=== PATIENT | female | born 1970 | race Caucasian/White ===

== ENCOUNTER 2020-08-18 16:25 | Emergency (ER) | payer BC, SELFPAY ==
[2020-08-18 16:35] VITALS: BP 139/90; PULSE 119; RESP 20; TEMP 37.3; O2SAT 99
[2020-08-18 16:36] VITALS: BP 139/90; PULSE 119; RESP 20; TEMP 37.3; O2SAT 99
--- NOTE | 2020-08-18 17:31 | ED.GENADULT ---
HPI - General Adult General Chief complaint: Skin/Abscess/Foreign Body Stated complaint: Itching Time Seen by Provider: 08/18/20 17:31 Source: patient and RN notes reviewed Mode of arrival: ambulatory Limitations: no limitations History of Present Illness HPI narrative: 50-year-old female presents with complaints of generalized itching for the past 24 hours. Rachana reports itching with relief for short period of time. Epson salt bath, Nandini dry, and lotion some relief. Benadryl last 09:00 today without relief. Unknown cause of itching. Denies visible rash. Denies new changes in personal hygiene products or laundry detergent. No new foods or medications. No swelling, burning, bleeding, or drainage. Denies fever, chills, headaches, weakness, fatigue, myalgia, facial swelling, or tongue swelling. Denies chest pain or dyspnea. Tolerating po intake well. Remains active. The patient reports she have not been diagnosed with COVID-19. The patient reports she received 2 Pfizer vaccines, last on May 16, 2020. The patient reports she is not waiting for the results of a COVID-19 lab test. The patient reports she do not have chills, weakness, or fatigue. The patient reports she do not have a new or worsening cough or shortness of breath. Denies chest pain. The patient reports she do not have any rhinorrhea, congestion, sore throat, loss of taste or smell, nausea, vomiting, abdominal pain, and diarrhea. Tolerating po intake well. Denies recent traveling. Denies concerns for COVID-19 or exposures. At this time, patient is not suspected of having COVID-19. Some parts of this dictation were generated by voice recognition software and may contain typographical and/or grammatical inaccuracies. Related Data Home Medications Medication Instructions Recorded Confirmed albuterol sulfate [ProAir HFA] INHALATION 08/18/20 alprazolam 08/18/20 atorvastatin 08/18/20 dapagliflozin [Farxiga] mg 08/18/20 dulaglutide [Trulicity] mg SUBCUT 08/18/20 dulaglutide [Trulicity] mg SUBCUT 08/18/20 duloxetine mg PO 08/18/20 fenofibrate micronized mg 08/18/20 fluticasone propion-salmeterol INHALATION 08/18/20 [Advair Diskus] metformin mg 08/18/20 montelukast mg 08/18/20 ropinirole mg 08/18/20 terbinafine HCl mg 08/18/20 Allergies Allergy/AdvReac Type Severity Reaction Status Date / Time No Known Allergies Allergy Unverified 10/16/18 02:49 Review of Systems Review of Systems: Narrative: CONSTITUTIONAL: Denies fever, chills, sweats. EYES: Denies visual changes, redness, discharge. ENT: Denies rhinorrhea, congestion, sore throat, otalgia. CARDIOVASCULAR: Denies chest pain, palpitations, edema. RESPIRATORY: Denies dyspnea, wheezing, cough. GASTROINTESTINAL: Denies abdominal pain, nausea, vomiting, diarrhea. SKIN: Complaints of generalized itching without rash. Denies drainage. MUSCULOSKELETAL: Denies acute back pain, joint pain, or myalgia. NEUROLOGIC: Denies numbness or focal weakness. PSYCHIATRIC: Denies anxiety or depression. All other systems reviewed & are unremarkable except as noted in HPI and below. [facility] Past Medical History Medical History (Updated 08/19/20 @ 00:00 by Chin Potter) Asthma Seasonal Diabetes Type II Hypertension Surgical History Surgical History (Updated 08/18/20 @ 17:47 by ARASH Bahena) No significant past surgical history Family History Family History Father Hypertension Family history of diabetes mellitus in first degree relative Mother Hypertension Grandparent Family history of coronary artery disease Diabetes mellitus Social History Social History (Updated 08/18/20 @ 17:48 by ARASH Bahena) Smoking packs per day: 0.5 Smoking cigarettes per day: 10.0 Years smoked: 20 Smoking pack-years: 10.00 Smoking status: Current every day smoker Tobacco type: cigarettes Se
== END 2020-08-18 17:58 | disposition home or self-care (01) ==
PROVIDERS: Emergency Provider Nurse Practitioner Family; PCP Physician Assistant
DX: L29.9 Pruritus, unspecified (principal); F17.210 Nicotine dependence, cigarettes, uncomplicated; J45.909 Unspecified asthma, uncomplicated; E11.9 Type 2 diabetes mellitus without complications; I10 Essential (primary) hypertension
CPT/HCPCS: 99213; G0463

== ENCOUNTER 2024-09-04 01:32 | Day surgery (SDC) | payer OTHER, SELFPAY ==
[2024-08-28 16:17] VITALS: BMI 25.7
--- OUTSIDE RECORDS SUMMARY | 2024-09-04 01:35 | XMS_ITS | Clinical Summary ---
Author Organization [employer] [facility] Address [address] [facility] [place] [address] Phone Care Team Providers Care Lottery Manager Name Role Phone Luca Seth MD Primary Care Provider [phone] Allergies No known active allergies Medications ALBUTEROL IN Take 2 Puffs by inhalation daily . Active CETIRIZINE HCL (ZYRTEC PO) Take 10 mg by mouth daily . Active rOPINIRole (REQUIP) 2 mg Oral Tab Take 2 mg by mouth. Active metFORMIN (GLUCOPHAGE) 1,000 mg tablet 5 Active ALPRAZolam (XANAX) 1 mg tablet 5 Active DULoxetine (CYMBALTA) 60 mg Capsule, Delayed Release(E.C.) Take 60 mg by mouth daily. Active QUEtiapine (SEROQUEL) 100 mg tablet Take 100 mg by mouth 2 times daily. Active tirzepatide (Mounjaro) 12.5 mg/0.5 mL Pen Injector Inject by subcutaneous injection. Active cyanocobalamin (VITAMIN B-12) 1,000 mcg/mL Solution 4 Active Active Problems Problem Noted Date Diagnosed Date Morbid obesity with BMI of 40.0-44.9, adult 0 04/2014 Encounters Date Type Department Care Team Description 08/21/2024 External Device Data ST[facility] ABSTRACTION Provider, Abstract 08/19/2024 External Device Data [facility] ABSTRACTION Provider, Abstract 08/05/2024 External Device Data [facility] ABSTRACTION Provider, Abstract 06/18/2024 External Device Data [facility] ABSTRACTION Provider, Abstract 06/10/2024 External Device Data [facility] ABSTRACTION Provider, Abstract 06/10/2024 External Device Data [facility] ABSTRACTION Provider, Abstract 06/07/2024 External Device Data [facility] ABSTRACTION Provider, Abstract 06/06/2024 External Device Data [facility] ABSTRACTION Provider, Abstract from Last 3 Months Family History Medical History Relation Name Comments Diabetes Father Healthy Father Hypertension Father No Known Problems Maternal Grandmother Healthy Mother Diabetes Paternal Grandmother Stroke Paternal Grandmother Relation Name Status Comments Brother Alive Father Maternal Grandfather Alive Maternal Grandmother Mother Alive Paternal Grandmother Social History Tobacco Use Types Packs/Day Years Used Date Smoking Tobacco: Former Cigarettes Smokeless Tobacco: Never Tobacco Cessation:Counseling Given: Not Answered Comments:still smokes once a month Alcohol Use Standard Drinks/Week Comments Yes 10 (1 standard drink = 0.6 oz pu re alcohol) Comments No Sex and Gender Information Value Date Recorded Sex Assigned at Not on file 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 Gender Identity Not on file Sexual Orientation Not on file Occupation Industry Job Start Date Job End Date Not on file Not on file Not on file Not on file Last Filed Vital Signs Vital Sign Reading Time Taken Comments Blood Pressure 112/70 12/25/2023 9:33 AM CDT Pulse 84 12/25/2023 9:33 AM CDT Temperature 37.3 C (99.1 F) 11/15/2012 3:08 PM CDT Respiratory Rate 20 11/15/2012 3:08 PM CDT Oxygen Saturation 97% 12/25/2023 9:33 AM CDT Inhaled Oxygen Concentration - - Weight 73.8 kg (162 lb 9.6 oz) 12/25/2023 9:33 A M CDT Height 161.5 cm (5' 3.58) 12/25/2023 9:33 AM CD T Body Mass Index 28.28 12/25/2023 9:33 AM CDT Plan of Treatment Health Maintenance Due Date Last Done Comments Pre-Diabetes and Diabetes Screening 1970 DTAP/TDAP/TD VACCINES (1 - Tdap) 1989 HEPATITIS B VACCINES (1 of 3 - 19+ 3-dose series) 01/01 BREAST CANCER SCREENING 05/10/2013 05/10/2012 COLORECTAL SCREENING 2015 Colorectal Cancer Screening 2015 FIT-DNA Q 3 years 2015 FIT/FOBT Q 1 year 2015 Flex Sig/CT Colonography Q 5 years 2015 ZOSTER VACCINE (1 of 2) 01/27/2020 INFLUENZA VACCINE (#1) 2023 PAP SMEAR 12/03/2026 12/04/2023 CERVICAL CANCER SCREENING 12/03/2028 HPV/Cotest (21-29) 12/03/2028 12/04/2023 HPV/Cotest (30-65) 12/03/2028 12/04/2023 Procedures Procedure Name Priority Date/Time Associated Diagnosis Comments CERV/VAG CYTO SCREEN PAP W/HPV Routine 12/04/2023 3:05 PM CDT Well woman exam with routine gynecological exam Screening for HPV (human papillomavirus) from Last 3 Months or Most Recently Relevant to Health Maintenance Results * CERV/VAG CYTO SCREEN PAP W/HPV (12/04/2023 3:05 PM CDT) CLINICAL INFORMATION [facility] Comment:None given LAST MENSTRUAL PERIOD [facility] Comment:None given PREV PAP: [facility] Comment:None given PREV BX: [facility] Comment:None given SOURCE [facility] Comment:Endocervix ADEQUACY: [facility] Comment:SATISFACTORY FOR HANY LUATION PAP INTERP [facility] Comment: Cytology Results: Negative for intraepithelial lesion or malignancy. Atrophic pattern; predominantly parabasal cells COMMENT (PAP TEST) [facility] Comment: This Pap test has been evaluated with computer assisted technology. FIRE ADJUSTER: Evonne Stover Comment: TMK, CT(ASCP) CT screening location: [place] [address] [place] [address] EXPLANATORY NOTE [employer] [facility] Comment: EXPLANATORY NOTE: The Pap is a screening test for cervical cancer. It is not a diagnostic test and is subject to false negative and false positive results. It is most reliable when a satisfactory sample, regularly obtained, is submitted with relevant clinical findings and history, and when the Pap result is evaluated along with historic and current clinical information. HPV E6/E7 Not Detected Not Detected [facility] Comment: Methodology: Tractor Technician-Mediated Amplification This assay detects E6/E7 viral messenger RNA (mRNA) from 14 high-risk HPV types (16,18,31,33,35,39,45,51,52,56,58,59,66,68). Cervical sources are required for HPV testing. If a vaginal source from a patient who has had a total hysterectomy with removal of cervix was submitted, please contact the testing laboratory for alternative testing options. For additional information, please refer to http://education.[facility]/faq/ONY965z4 (This link if provided for information/ educational purposes only.) Test Performed at: [facility] [address] [place] [address] Luke AMADO Genital SWAB OF ENDOCERVIX / Unknown 12/04/2023 3:05 PM CDT 12/05/2023 1:02 AM CDT Myriam Cedeno NP PATHOLOGY/CYTOLOGY ORDERABL ES Final Result [facility] [phone] [facility] [address] [place] [address] from Last 3 Months or Most Recently Relevant to Health Maintenance Insurance [facility] BLUE PREFERRED Care Teams Lottery Manager Relationship Specialty Start Date End Date Luca Seth MD PCP - General Internal Medicine 11/15/12
--- OUTSIDE RECORDS SUMMARY | 2024-09-04 01:35 | XMS_ITS | Encounter Summary ---
Author Organization [facility] Address [address] [place] [address] Care Team Providers Care Wastewater Operator Name Role Phone Unavailable Primary Care Provider Unavailabl e Encounter Details Date Type Department Care Team (Late st Contact Info) Description 10/21/2019 Lab Requisition [facility] [address] [place] [address] Sam Smith MD [address] [address] Social History Tobacco Use Types Packs/Day Years Used Date Smoking Tobacco: Never Assessed Comments Unknown Sex and Gender Information Value Date Recorded Sex Assigned at Not on file Legal Sex Female 8:33 PM CDT Gender Identity Not on file Sexual Orientation Not on file documented as of this encounter Plan of Treatment Not on file documented as of this encounter Procedures Procedure Name Priority Date/Time Associated Diagnosis Comments SARS-COV-2 (COVID-19) IN HOUSE Routine 10/21/2019 1:00 PM CDT documented in this encounter Results * SARS-COV-2 (COVID-19) IN HOUSE (10/21/2019 1:00 PM CDT) COVID-19 PCR Not detected Not detected, Invalid 10/22/2019 3:52 PM CDT [facility]CRO[facility]OLOG[facility] Microbiology SPECIMEN FROM NASOPHARYNGEAL STRUCTURE / Unknown Collection / Unknown 10/21/2019 1:00 PM CDT 10/22/2019 1:55 AM CDT Narrative [facility] MICROBIOLOGY - 10/22/2019 3:52 PM CDT This Real Time RT-PCR assay was developed and its performance characteristics determined by [facility]. This test has been authorized by the Food and Drug administration (FDA)under an Emergency Use Authorization (EUA). This test has been validated in accordance with the FDA's guidance document Policy for Diagnostic Testing in Laboratories Certified to perform High Complexity Testing under CLIA prior to Emergency Use Authorization for Coronavirus Disease-2019 during the Public Health Emergency issued on May 31, 2019. FDA independent review of this validation is pending. This test is only authorized for the duration of time the declaration that circumstances exist justifying the authorization of emergency use of in vitro diagnostic tests for detection of SARS-CoV-2 virus and/or diagnosis of COVID-19 infection under section 564(b)(1) of the Act, 21 U.S.C 360bbb-3 (b)(1), unless the authorization is terminated or revoked sooner. Sam Smith MD LAB - MICROBIOLOGY ORDERABLES [facility] Result [facility]CROBIOLOG[facility] [address] [place] [address], [facility] [phone] documented in this encounter Visit Diagnoses Not on filedocumented in this encounter Additional Health Concerns Infection Onset Date Last Indicated Resolved Time COVID-19 Under Investigation 10/21/2019 10/21/2019 10/22/2019 3:52 PM CDT documented as of this encounter
--- OUTSIDE RECORDS SUMMARY | 2024-09-04 01:35 | XMS_ITS | Continuity of Care Document ---
Author Organization [facility] Address [address] [place] [address] Phone Care Team Providers Care Supervisor Drying Name Role Phone No Information Unavailable Unavailable Advance Directives Directive Yes / No Effective Date File Name No Information Encounters Encounter Description Practice Location Reason(s) For Visit Diagnoses Date Provider Providers Copied on Encounter [facility], [address], [place], [place], [id number], [place] tel:[phone] No Information No Information Family History Family Member Type Diagnosis Age At Onset No Information Payers Payer name Insurance type Covered green party ID Authoriza tion(s) No Information Social History Type Description Quantity Date Captured Comments Sex Female Smoking Status No Information Chief Complaint And Reason For Visit No Information Reason For Referral Reason For Referral No Information History Of Present Illness Encounter Date Complaint History Of Prese nt Illness No Information Functional Status Date Functional Assessmen t No Information Instructions Date Instruction Additional Infor mation No Information Assessments Type Assessment Date No Information Patient Care Teams Name Effective Dates (start - stop) Status Members No Information
--- OUTSIDE RECORDS SUMMARY | 2024-09-04 01:36 | XMS_ITS | Data Portability ---
Author Organization [place] [facility] [employer], Main Office Address [address] [place] [address] Assessment Encounter Date Assessment Date Assessment LastModified by Organization Details LastModified Time 12/20/2022 12/20/2022 Mammogram still to complete. pap smear still to complete. [email or web address] Not available 12/20/2022 10:58:17 Plan of Treatment Reminders Order Date Submit Date Provider Last Modified By Organization Details Last Modified Time Details Appointments None recorded. Lab iron + TIBC + ferritin, serum 2022 023 [facility], [address], [place], [address], 3 02:06:38 magnesium, serum or plasma 2022 023 [facility], [address], [place], [address], 3 02:06:43 vitamin B12 + folate, serum or blood 2022 023 [facility], [address], [place], [address], 3 02:06:45 HbA1c (hemoglobin A1c), blood 2022 023 [facility], [address], [place], [address], 3 02:06:42 CBC w/ auto diff 2022 023 [facility], [address], [place], [address], 3 02:06:44 CMP, serum or plasma 2022 023 [facility], [address], [place], [address], 3 02:06:41 lipid panel, serum 2022 023 [facility], [address], [place], [address], 3 02:06:40 TSH, serum or plasma 2022 023 [facility], [address], [place], [address], 3 18:40:36 T4, free, serum 2022 023 [facility], [address], [place], [address], 3 18:40:37 HbA1c (hemoglobin A1c), blood 2022 023 [facility], [address], [place], [address], 3 18:40:35 lipid panel, serum 2022 023 [facility], [address], [place], [address], 3 18:40:34 SIOMARA (antinuclea r antibodies) screen, ifa, serum 2022 023 [facility], [address], [place], [address], 3 18:40:37 Referral None recorded. Procedures colonoscopy screening (PROC) 2022 023 [email or web address] Juan Albetro Guillermo MD, [address] [facility] [address], [place], [address], 4 09:54:31 Surgeries None recorded. Imaging MAMMO, screening, digital, bilateral 2022 023 [email or web address] 4 [facility] (Radiology Scheduling), [address], [place], [address], 3 12:24:35 Medication Orders Mounjaro 2.5 mg/0.5 mL subcutaneou s pen injector 2022 023 [email or web address] [id number], [address], [place], [place], [id number], 3 18:10:27 atorvastati n 10 mg tablet 2022 023 [facility], [address] [facility], [place], [address], 3 10:12:19 Patient TargetsNo targets recorded. Patient InstructionsNo instructions recorded. Reason for Referral None Reported. Results Created Date Observation Date Name Description Value Unit Range Abnormal Flag Note LastModifiedBy Organization Detail LastModifiedTime 08/20/19 22 08/20/2021 EXTRA URINE SPECI MEN extra urine specimen Not Available [facility] [address] [place], [address], 08/20/2021 13:48:12 08/20/19 22 08/20/2021 EXTRA URINE SPECI MEN comment An extra tube was recei horacio witho ut a test speci fied. We will hold this speci men in our cold stora ge in the event addit ional testi ng is reque sted. Pleas e conta ct your local clien t servi ce repre senta tive for fur er denia tance withi n 72 hours due to speci men stabi lity. Not Available [address], [address], 08/20/2021 13:48:12 08/20/19 22 08/20/2021 REFLE XIVE URINE CULTU RE reflexive urine culture NO CULTU RE INDIC ATED Not Available [address], [address], 08/20/2021 13:48:11 08/20/19 22 08/20/2021 URINA LYSIS , COMPL ETE W/REF MATTHEW TO CULTU RE color yellow yellow normal Not Available [address], [address], 08/20/2021 13:48:11 08/20/19 22 08/20/2021 URINA LYSIS , COMPL ETE W/REF MATTHEW TO CULTU RE appearance cloudy clear abnormal Not Available [address], [address], 08/20/2021 13:48:11 08/20/19 22 08/20/2021 URINA LYSIS , COMPL ETE W/REF MATTHEW TO CULTU RE specific gravity 1.023 1.001- 1.035 normal Not Available [address], [address], 08/20/2021 13:48:11 08/20/19 22 08/20/2021 URINA LYSIS , COMPL ETE W/REF MATTHEW TO CULTU RE pH < or = 5.0 5.0-8. 0 normal Not Available [address], [address], 08/20/2021 13:48:11 08/20/19 22 08/20/2021 URINA LYSIS , COMPL ETE W/REF MATTHEW TO CULTU RE glucose 3+ negati ve abnormal Not Available [address], [address], 08/20/2021 13:48:11 08/20/19 22 08/20/2021 URINA LYSIS , COMPL ETE W/REF MATTHEW TO CULTU RE bilirubin negati ve negati ve normal Not Available [address], [address], 08/20/2021 13:48:11 08/20/19 22 08/20/2021 URINA LYSIS , COMPL ETE W/REF MATTHEW TO CULTU RE ketones negati ve negati ve normal Not Available [address], [address], 08/20/2021 13:48:11 08/20/19 22 08/20/2021 URINA LYSIS , COMPL ETE W/REF MATTHEW TO CULTU RE occult blood negati ve negati ve normal Not Available [address], [address], 08/20/2021 13:48:11 08/20/19 22 08/20/2021 URINA LYSIS , COMPL ETE W/REF MATTHEW TO CULTU RE protein negati ve negati ve normal Not Available [address], [address], 08/20/2021 13:48:11 08/20/19 22 08/20/2021 URINA LYSIS , COMPL ETE W/REF MATTHEW TO CULTU RE nitrite negati ve negati ve normal Not Available [facility] [address], [address], 08/20/2021 13:48:11 08/20/19 22 08/20/2021 URINA LYSIS , COMPL ETE W/REF MATTHEW TO CULTU RE leukocyte esterase negati ve negati ve normal Not Available [address], [address], 08/20/2021 13:48:11 08/20/19 22 08/20/2021 URINA LYSIS , COMPL ETE W/REF MATTHEW TO CULTU RE WBC 0-5 /hpf < or = 5 normal Not Available [address], [address], 08/20/2021 13:48:11 08/20/19 22 08/20/2021 URINA LYSIS , COMPL ETE W/REF MATTHEW TO CULTU RE RBC none seen /hpf < or = 2 normal Not Available [address], [address], 08/20/2021 13:48:11 08/20/19 22 08/20/2021 URINA LYSIS , COMPL ETE W/REF MATTHEW TO CULTU RE squamous epithelial cells 6-10 /hpf < or = 5 abnormal Not Available [address], [address], 08/20/2021 13:48:11 08/20/19 22 08/20/2021 URINA LYSIS , COMPL ETE W/REF MATTHEW TO CULTU RE bacteria few /hpf none seen abnormal Not Available [address], [address], 08/20/2021 13:48:11 08/20/19 22 08/20/2021 URINA LYSIS , COMPL ETE W/REF MATTHEW TO CULTU RE hyaline cast none seen /lpf none seen normal Not Available [address], [address], 08/20/2021 13:48:11 08/20/19 22 08/20/2021 CBC (INCL UDES DIFF/ PLT) white blood cell count 8.2 thous and/u L 3.8-10 .8 normal Not Available [address], [address], 08/20/2021 13:48:10 08/20/19 22 08/20/2021 CBC (INCL UDES DIFF/ PLT) red blood cell count 4.75 lolis on/uL 3.80-5 .10 normal Not Available [address], [address], 08/20/2021 13:48:10 08/20/19 22 08/20/2021 CBC (INCL UDES DIFF/ PLT) hemoglobin 13.6 g/dL 11.7-1 5.5 normal Not Available [address], [address], 08/20/2021 13:48:10 08/20/19 22 08/20/2021 CBC (INCL UDES DIFF/ PLT) hematocrit 41.7 % 35.0-4 5.0 normal Not Available [address], [address], 08/20/2021 13:48:10 08/20/19 22 08/20/2021 CBC (INCL UDES DIFF/ PLT) MCV 87.8 fL 80.0-1 00.0 normal Not Available [address], [address], 08/20/2021 13:48:10 08/20/19 22 08/20/2021 CBC (INCL UDES DIFF/ PLT) MCH 28.6 pg 27.0-3 3.0 normal Not Available [address], [address], 08/20/2021 13:48:10 08/20/19 22 08/20/2021 CBC (INCL UDES DIFF/ PLT) MCHC 32.6 g/dL 32.0-3 6.0 normal Not Available [address], [address], 08/20/2021 13:48:10 08/20/19 22 08/20/2021 CBC (INCL UDES DIFF/ PLT) RDW 13.3 % 11.0-1 5.0 normal Not Available [address], [address], 08/20/2021 13:48:10 08/20/19 22 08/20/2021 CBC (INCL UDES DIFF/ PLT) platelet count 354 thous and/u L 140-40 0 normal Not Available [address], [address], 08/20/2021 13:48:10 08/20/19 22 08/20/2021 CBC (INCL UDES DIFF/ PLT) MPV 10.6 fL 7.5-12 .5 normal Not Available [address], [address], 08/20/2021 13:48:10 08/20/19 22 08/20/2021 CBC (INCL UDES DIFF/ PLT) absolute neutrophils 5125 cells /uL 1500-7 800 normal Not Available [address], [address], 08/20/2021 13:48:10 08/20/19 22 08/20/2021 CBC (INCL UDES DIFF/ PLT) absolute lymphocytes 2444 cells /uL 850-39 00 normal Not Available [address], [address], 08/20/2021 13:48:10 08/20/19 22 08/20/2021 CBC (INCL UDES DIFF/ PLT) absolute monocytes 361 cells /uL 200-95 0 normal Not Available [address], [address], 08/20/2021 13:48:10 08/20/19 22 08/20/2021 CBC (INCL UDES DIFF/ PLT) absolute eosinophils 189 cells /uL 15-500 normal Not Available [address], [address], 08/20/2021 13:48:10 08/20/19 22 08/20/2021 CBC (INCL UDES DIFF/ PLT) absolute basophils 82 cells /uL 0-200 normal Not Available [address] [place], [address], 08/20/2021 13:48:10 08/20/19 22 08/20/2021 CBC (INCL UDES DIFF/ PLT) neutrophils 62.5 % normal Not Available [facility] [address], [address], 08/20/2021 13:48:10 08/20/19 22 08/20/2021 CBC (INCL UDES DIFF/ PLT) lymphocytes 29.8 % normal Not Available [facility] [address], [address], 08/20/2021 13:48:10 08/20/19 22 08/20/2021 CBC (INCL UDES DIFF/ PLT) monocytes 4.4 % normal Not Available [facility] [address], [address], 08/20/2021 13:48:10 08/20/19 22 08/20/2021 CBC (INCL UDES DIFF/ PLT) eosinophils 2.3 % normal Not Available [facility] [address], [address], 08/20/2021 13:48:10 08/20/19 22 08/20/2021 CBC (INCL UDES DIFF/ PLT) basophils 1.0 % normal Not Available [facility] [address], [address], 08/20/2021 13:48:10 08/20/19 22 08/20/2021 HEMOG LOBIN A1C hemoglobin A1C 8.1 %_of_ total _HGB <5.7 high For someo ne witho ut known diabe martín, a hemog lobin A1c value of 6.5% or great er indic ates that they may have diabe martín and this shoul d be confi rmed with a follo w-up test. For someo ne with known diabe martín, a value <7% indic ates that their diabe martín is well contr olled and a value great er than or equal to 7% indic ates subop timal contr ol. A1c targe ts shoul d be indiv idual ized based on durat ion of diabe martín, age, comor bid condi tions , and other consi derat ions. Curre ntly, no conse nsus exist s ellie bowen use of hemog lobin A1c for diagn osis of diabe martín for child efren. Not Available [facility] [address] [address] [place], [address], 08/20/2021 13:48:10 08/20/19 22 08/20/2021 COMPR EHENS SURINDER METAB OLIC PANEL glucose 132 mg/dL 65-99 high Fasti ng refer ence inter dave For someo ne witho ut known diabe martín, a gluco se value >125 mg/dL indic ates that they may have diabe martín and this shoul d be confi rmed with a follo w-up test. Not Available [facility] [address] [address] [place], [address], 08/20/2021 13:48:09 08/20/19 22 08/20/2021 COMPR EHENS SURINDER METAB OLIC PANEL urea nitrogen (BUN) 19 mg/dL 7-25 normal Not Available [facility] [address] [address] [place], [address], 08/20/2021 13:48:09 08/20/19 22 08/20/2021 COMPR EHENS SURINDER METAB OLIC PANEL creatinine 0.66 mg/dL 0.50-1 .05 normal For patie nts >49 years of age, the refer ence limit for Creat inine is appro ximat keegan 13% highe r for peopl e ident ified as Afric an-Am jasbir n. Not Available [facility] [address] [place], [address], 08/20/2021 13:48:09 08/20/19 22 08/20/2021 COMPR EHENS SURINDER METAB OLIC PANEL eGFR non-afr. welsh 102 mL/mi n/1.7 3m2 > or = 60 normal Not Available [address] [place], [address], 08/20/2021 13:48:09 08/20/19 22 08/20/2021 COMPR EHENS SURINDER METAB OLIC PANEL eGFR 119 mL/mi n/1.7 3m2 > or = 60 normal Not Available [address], [address], 08/20/2021 13:48:09 08/20/19 22 08/20/2021 COMPR EHENS SURINDER METAB OLIC PANEL BUN/creatini ne ratio not applic able (calc ) 6-22 Not Available [address], [address], 08/20/2021 13:48:09 08/20/19 22 08/20/2021 COMPR EHENS SURINDER METAB OLIC PANEL sodium 138 mmol/ L 135-14 6 normal Not Available [address], [address], 08/20/2021 13:48:09 08/20/19 22 08/20/2021 COMPR EHENS SURINDER METAB OLIC PANEL potassium 4.5 mmol/ L 3.5-5. 3 normal Not Available [address], [address], 08/20/2021 13:48:09 08/20/19 22 08/20/2021 COMPR EHENS SURINDER METAB OLIC PANEL chloride 103 mmol/ L 98-110 normal Not Available [address], [address], 08/20/2021 13:48:09 08/20/19 22 08/20/2021 COMPR EHENS SURINDER METAB OLIC PANEL carbon dioxide 25 mmol/ L 20-32 normal Not Available [address] [address] [place], [address], 08/20/2021 13:48:09 08/20/19 22 08/20/2021 COMPR EHENS SURINDER METAB OLIC PANEL calcium 9.3 mg/dL 8.6-10 .4 normal Not Available [address], [address], 08/20/2021 13:48:09 08/20/19 22 08/20/2021 COMPR EHENS SURINDER METAB OLIC PANEL protein, total 7.1 g/dL 6.1-8. 1 normal Not Available [address], [address], 08/20/2021 13:48:09 08/20/19 22 08/20/2021 COMPR EHENS SURINDER METAB OLIC PANEL albumin 4.8 g/dL 3.6-5. 1 normal Not Available [address], [address], 08/20/2021 13:48:09 08/20/19 22 08/20/2021 COMPR EHENS SURINDER METAB OLIC PANEL globulin 2.3 g/dL_ (calc ) 1.9-3. 7 normal Not Available [address], [address], 08/20/2021 13:48:09 08/20/19 22 08/20/2021 COMPR EHENS SURINDER METAB OLIC PANEL albumin/glob ulin ratio 2.1 (calc ) 1.0-2. 5 normal Not Available [address], [address], 08/20/2021 13:48:09 08/20/19 22 08/20/2021 COMPR EHENS SURINDER METAB OLIC PANEL bilirubin, total 0.3 mg/dL 0.2-1. 2 normal Not Available [address], [address], 08/20/2021 13:48:09 08/20/19 22 08/20/2021 COMPR EHENS SURINDER METAB OLIC PANEL alkaline phosphatase 41 U/L 37-153 normal Not Available [facility] [address], [address], 08/20/2021 13:48:09 08/20/19 22 08/20/2021 COMPR EHENS SURINDER METAB OLIC PANEL AST 12 U/L 10-35 normal Not Available [address], [address], 08/20/2021 13:48:09 08/20/19 22 08/20/2021 COMPR EHENS SURINDER METAB OLIC PANEL ALT 16 U/L 6-29 normal Not Available [address], [address], 08/20/2021 13:48:09 08/20/19 22 08/20/2021 LIPID PANEL WITH RATIO S cholesterol, total 242 mg/dL <200 high Not Available [address], [address], 08/20/2021 13:48:09 08/20/19 22 08/20/2021 LIPID PANEL WITH RATIO S HDL cholesterol 41 mg/dL > or = 50 low Not Available [address], [address], 08/20/2021 13:48:09 08/20/19 22 08/20/2021 LIPID PANEL WITH RATIO S triglyceride s 285 mg/dL <150 high If a non-f astin g speci men was colle cted, consi angel luis repea t trigl yceri de testi ng on a fasti ng speci men if clini alize indic ated. Marvel petit et al. J. of Clin. Lipid ol. 2015; 9:129 -169. Not Available [address], [address], 08/20/2021 13:48:09 08/20/19 22 08/20/2021 LIPID PANEL WITH RATIO S LDL-choleste rol 154 mg/dL _(yolanda c) high Refer ence range : <100 Gabriel able range <100 mg/dL for prima ry preve ntion ; <70 mg/dL for patie nts with CHD or diabe tic patie nts with > or = 2 CHD risk facto rs. LDL-C is now calcu lated using the Yarelis n-Hop kins calcu ja n, which is a valid ated novel lauritao d constantino bowen loida r accur acy than the Fried terrence equat ion in the estim ation of LDL-C . Yarelis jimenes SS et al. DANNI. 2013; 310(1 9): 2061- 2068 (http ://ed ucati on.Qu qianchengwuyou. Kaybus/f aq/FA Q164) Not Available [facility] [address] [address] [place], [address], 08/20/2021 13:48:09 08/20/19 22 08/20/2021 LIPID PANEL WITH RATIO S chol/HDLC ratio 5.9 (calc ) <5.0 high Not Available [facility] [address] [address] [place], [address], 08/20/2021 13:48:09 08/20/19 22 08/20/2021 LIPID PANEL WITH RATIO S LDL/HDL ratio 3.8 (calc ) Below avera ge Risk: <2.34 Ghent ge Risk: 2.35- 4.12 Moder ate Risk: 4.13- 5.56 High Risk: >5.57 Not Available [facility] [address] [place], [address], 08/20/2021 13:48:09 08/20/19 22 08/20/2021 LIPID PANEL WITH RATIO S non HDL cholesterol 201 mg/dL _(yolanda c) <130 high For patie nts with diabe martín plus 1 major ASCVD risk facto r, treat ing to a non-H DL-C goal of <100 mg/dL (LDL- C of <70 mg/dL ) is consi jose elias a alyce penikko c optio n. Not Available [address] [address] [place], [address], 08/20/2021 13:48:09 08/20/19 22 08/20/2021 TSH+F REE T4 TSH 1.08 mIU/L normal Refer ence Range > or = 20 Years 0.40- 4.50 Pregn keeley Range s First trime ster 0.26- 2.66 Secon d trime ster 0.55- 2.73 Third trime ster 0.43- 2.91 Not Available [address] [address] [place], [address], 08/20/2021 13:48:08 08/20/19 22 08/20/2021 TSH+F REE T4 T4, free 1.2 NG/dL 0.8-1. 8 normal Not Available [address], [address], 08/20/2021 13:48:08 08/20/19 22 08/20/2021 ALBUM IN, RANDO M URINE W/CRE ATINI NE albumin, urine <0.2 mg/dL see note: normal Refer ence Range : Refer ence Range Not estab lishe d Not Available [address], [address], 08/20/2021 13:48:07 08/20/19 22 08/20/2021 ALBUM IN, RANDO M URINE W/CRE ATINI NE albumin/crea tinine ratio, random urine note mcg/m g_cre at <30 normal NOTE: The urine album in value is less than 0.2 mg/dL there fore we are unabl e to calcu late excre tion and/o r creat inine ratio . The ADA defin es abnor malit ies in album in excre tion as follo ws: Album inuri a Categ ory Resul t (mcg/ mg creat inine ) Shameka l to Mildl y incre ased <30 Moder ately incre ased 30-29 9 Sever keegan incre ased > OR = 300 The ADA recom mends that at least two of three speci mens colle cted withi n a 3-6 month perio d be abnor mal befor e consi mag g a patie nt to be withi n a diagn ostic categ ory. Not Available [address] [address] [place], [address], 08/20/2021 13:48:07 08/20/19 22 08/20/2021 ALBUM IN, RANDO M URINE W/CRE ATINI NE creatinine, random urine 32 mg/dL 20-275 normal Not Available [address] [address] [place], [address], 08/20/2021 13:48:07 08/10/19 23 08/10/2022 LIPID PANEL WITH RATIO S cholesterol, total 197 mg/dL <200 normal Not Available [address] [address] [place], [address], 08/10/2022 01:07:56 08/10/19 23 08/10/2022 LIPID PANEL WITH RATIO S HDL cholesterol 41 mg/dL > or = 50 low Not Available [address] [address] [place], [address], 08/10/2022 01:07:56 08/10/19 23 08/10/2022 LIPID PANEL WITH RATIO S triglyceride s 177 mg/dL <150 high Not Available [address], [address], 08/10/2022 01:07:56 08/10/19 23 08/10/2022 LIPID PANEL WITH RATIO S LDL-choleste rol 127 mg/dL _(yolanda c) high Refer ence range : <100 Gabriel able range <100 mg/dL for prima ry preve ntion ; <70 mg/dL for patie nts with CHD or diabe tic patie nts with > or = 2 CHD risk facto rs. LDL-C is now calcu lated using the Yarelis n-Hop kins zeus jimenes, which is a valid ated novel metho winston bowen loida r accur acy than the Fried terrence equat ion in the estim ation of LDL-C . Yarelis n SS et al. DANNI. 2013; 310(1 9): 2061- 2068 (http ://ed ucati on.Qu Martin altagracia Ullink. com/f aq/FA Q164) Not Available [facility] [address] [address] [place], [address], 08/10/2022 01:07:56 08/10/19 23 08/10/2022 LIPID PANEL WITH RATIO S chol/HDLC ratio 4.8 (calc ) <5.0 normal Not Available [address], [address], 08/10/2022 01:07:56 08/10/1908/10/2022 LIPID PANEL WITH RATIO S LDL/HDL ratio 3.1 (calc ) Below avera ge Risk: <2.34 [place] Risk: 2.35- 4.12 Moder ate Risk: 4.13- 5.56 High Risk: >5.57 Not Available [address], [address], 08/10/2022 01:07:56 08/10/1908/10/2022 LIPID PANEL WITH RATIO S non HDL cholesterol 156 mg/dL _(yolanda c) <130 high For patie nts with diabe martín plus 1 major ASCVD risk facto r, treat ing to a non-H DL-C goal of <100 mg/dL (LDL- C of <70 mg/dL ) is consi dered a thera peuti c optio n. Not Available [facility] [address] [address] [place], [address], 08/10/2022 01:07:56 08/10/1908/10/2022 COMPR EHENS SURINDER METAB OLIC PANEL glucose 174 mg/dL 65-99 high Fasti ng refer ence inter dave For someo ne witho ut known diabe martín, a gluco se value >125 mg/dL indic ates that they may have diabe martín and this shoul d be confi rmed with a follo w-up test. Not Available [address], [address], 08/10/2022 01:07:57 08/10/19 23 08/10/2022 COMPR EHENS SURINDER METAB OLIC PANEL urea nitrogen (BUN) 15 mg/dL 7-25 normal Not Available [address], [address], 08/10/2022 01:07:57 08/10/1908/10/2022 COMPR EHENS SURINDER METAB OLIC PANEL creatinine 0.72 mg/dL 0.50-1 .03 normal Not Available [address], [address], 08/10/2022 01:07:57 08/10/19 23 08/10/2022 COMPR EHENS SURINDER METAB OLIC PANEL eGFR 101 mL/mi n/1.7 3m2 > or = 60 normal The eGFR is based on the CKD-E PI 2020 millie shea. To calcu late the new eGFR from a previ ous Creat inine or Cysta tin C resul t, go to https ://cristina britton.amaury hector/katelynn alexandre s/ kdoqi /gfr% 5Fcal culat or Not Available [address], [address], 08/10/2022 01:07:57 08/10/19 23 08/10/2022 COMPR EHENS SURINDER METAB OLIC PANEL BUN/creatini ne ratio NOT APPLIC ABLE (calc ) 6-22 Not Available [address], [address], 08/10/2022 01:07:57 08/10/19 23 08/10/2022 COMPR EHENS SURINDER METAB OLIC PANEL sodium 136 mmol/ L 135-14 6 normal Not Available [facility] [address] [place], [address], 08/10/2022 01:07:57 08/10/1908/10/2022 COMPR EHENS SURINDER METAB OLIC PANEL potassium 4.2 mmol/ L 3.5-5. 3 normal Not Available [address], [address], 08/10/2022 01:07:57 08/10/1908/10/2022 COMPR EHENS SURINDER METAB OLIC PANEL chloride 106 mmol/ L 98-110 normal Not Available [address], [address], 08/10/2022 01:07:57 08/10/1908/10/2022 COMPR EHENS SURINDER METAB OLIC PANEL carbon dioxide 25 mmol/ L 20-32 normal Not Available [address], [address], 08/10/2022 01:07:57 08/10/19 23 08/10/2022 COMPR EHENS SURINDER METAB OLIC PANEL calcium 9.1 mg/dL 8.6-10 .4 normal Not Available [address], [address], 08/10/2022 01:07:57 08/10/1908/10/2022 COMPR EHENS SURINDER METAB OLIC PANEL protein, total 6.4 g/dL 6.1-8. 1 normal Not Available [address], [address], 08/10/2022 01:07:57 08/10/1908/10/2022 COMPR EHENS SURINDER METAB OLIC PANEL albumin 4.1 g/dL 3.6-5. 1 normal Not Available [address], [address], 08/10/2022 01:07:57 08/10/19 23 08/10/2022 COMPR EHENS SURINDER METAB OLIC PANEL globulin 2.3 g/dL_ (calc ) 1.9-3. 7 normal Not Available [address], [address], 08/10/2022 01:07:57 08/10/19 23 08/10/2022 COMPR EHENS SURINDER METAB OLIC PANEL albumin/glob ulin ratio 1.8 (calc ) 1.0-2. 5 normal Not Available [address], [address], 08/10/2022 01:07:57 08/10/1908/10/2022 COMPR EHENS SURINDER METAB OLIC PANEL bilirubin, total 0.3 mg/dL 0.2-1. 2 normal Not Available [address], [address], 08/10/2022 01:07:57 08/10/19 23 08/10/2022 COMPR EHENS SURINDER METAB OLIC PANEL alkaline phosphatase 29 U/L 37-153 low Not Available [address], [id number], 08/10/2022 01:07:57 08/10/19 23 08/10/2022 COMPR EHENS SURINDER METAB OLIC PANEL AST 12 U/L 10-35 normal Not Available [address], [id number], 08/10/2022 01:07:57 08/10/19 23 08/10/2022 COMPR EHENS SURINDER METAB OLIC PANEL ALT 15 U/L 6-29 normal Not Available [address], [address], 08/10/2022 01:07:57 08/10/19 23 08/10/2022 HEMOG LOBIN A1C hemoglobin A1C 8.4 %_of_ total _HGB <5.7 high For someo ne witho ut known diabe martín, a hemog lobin A1c value of 6.5% or great er indic ates that they may have diabe martín and this shoul d be confi rmed with a follo w-up test. For someo ne with known diabe martín, a value <7% indic ates that their diabe martín is well contr olled and a value great er than or equal to 7% indic ates subop timal contr ol. A1c targe ts shoul d be indiv idual ized based on durat ion of diabe martín, age, comor bid condi tions , and other consi derat ions. Curre ntly, no conse nsus exist s ellie bowen use of hemog lobin A1c for diagn osis of diabe martín for child efren. Not Available [address], [address], 08/10/2022 01:07:57 08/10/19 23 08/10/2022 CBC (INCL UDES DIFF/ PLT) white blood cell count 5.8 thous and/u L 3.8-10 .8 normal Not Available [address], [address], 08/10/2022 01:07:58 08/10/19 23 08/10/2022 CBC (INCL UDES DIFF/ PLT) red blood cell count 4.26 lolis on/uL 3.80-5 .10 normal Not Available [facility] [address], [address], 08/10/2022 01:07:58 08/10/19 23 08/10/2022 CBC (INCL UDES DIFF/ PLT) hemoglobin 12.2 g/dL 11.7-1 5.5 normal Not Available [facility] [address], [address], 08/10/2022 01:07:58 08/10/19 23 08/10/2022 CBC (INCL UDES DIFF/ PLT) hematocrit 37.1 % 35.0-4 5.0 normal Not Available [facility] - [address], [address], 08/10/2022 01:07:58 08/10/1908/10/2022 CBC (INCL UDES DIFF/ PLT) MCV 87.1 fL 80.0-1 00.0 normal Not Available [facility] [address], [address], 08/10/2022 01:07:58 08/10/1908/10/2022 CBC (INCL UDES DIFF/ PLT) MCH 28.6 pg 27.0-3 3.0 normal Not Available [facility] [address], [address], 08/10/2022 01:07:58 08/10/1908/10/2022 CBC (INCL UDES DIFF/ PLT) MCHC 32.9 g/dL 32.0-3 6.0 normal Not Available [facility] [address], [address], 08/10/2022 01:07:58 08/10/1908/10/2022 CBC (INCL UDES DIFF/ PLT) RDW 13.5 % 11.0-1 5.0 normal Not Available [facility] [address], [address], 08/10/2022 01:07:58 08/10/1908/10/2022 CBC (INCL UDES DIFF/ PLT) platelet count 331 thous and/u L 140-40 0 normal Not Available [facility] [address], [address], 08/10/2022 01:07:58 08/10/1908/10/2022 CBC (INCL UDES DIFF/ PLT) MPV 10.4 fL 7.5-12 .5 normal Not Available [facility] [address], [address], 08/10/2022 01:07:58 08/10/1908/10/2022 CBC (INCL UDES DIFF/ PLT) absolute neutrophils 3097 cells /uL 1500-7 800 normal Not Available [address], [address], 08/10/2022 01:07:58 08/10/19 23 08/10/2022 CBC (INCL UDES DIFF/ PLT) absolute lymphocytes 2169 cells /uL 850-39 00 normal Not Available [address], [address], 08/10/2022 01:07:58 08/10/1908/10/2022 CBC (INCL UDES DIFF/ PLT) absolute monocytes 302 cells /uL 200-95 0 normal Not Available [address], [address], 08/10/2022 01:07:58 08/10/1908/10/2022 CBC (INCL UDES DIFF/ PLT) absolute eosinophils 162 cells /uL 15-500 normal Not Available [facility] [address], [address], 08/10/2022 01:07:58 08/10/19 23 08/10/2022 CBC (INCL UDES DIFF/ PLT) absolute basophils 70 cells /uL 0-200 normal Not Available [facility] [address], [address], 08/10/2022 01:07:58 08/10/1908/10/2022 CBC (INCL UDES DIFF/ PLT) neutrophils 53.4 % normal Not Available [facility] [address], [address], 08/10/2022 01:07:58 08/10/1908/10/2022 CBC (INCL UDES DIFF/ PLT) lymphocytes 37.4 % normal Not Available [facility] [address], [address], 08/10/2022 01:07:58 08/10/19 23 08/10/2022 CBC (INCL UDES DIFF/ PLT) monocytes 5.2 % normal Not Available [address], [address], 08/10/2022 01:07:58 08/10/19 23 08/10/2022 CBC (INCL UDES DIFF/ PLT) eosinophils 2.8 % normal Not Available [address], [address], 08/10/2022 01:07:58 08/10/19 23 08/10/2022 CBC (INCL UDES DIFF/ PLT) basophils 1.2 % normal Not Available [address], [address], 08/10/2022 01:07:58 11/23/19 23 11/23/2022 LIPID PANEL WITH RATIO S cholesterol, total 133 mg/dL <200 normal Not Available [address], [address], 11/23/2022 18:40:34 11/23/1911/23/2022 LIPID PANEL WITH RATIO S HDL cholesterol 41 mg/dL > or = 50 low Not Available [address], [address], 11/23/2022 18:40:34 11/23/19 23 11/23/2022 LIPID PANEL WITH RATIO S triglyceride s 140 mg/dL <150 normal Not Available [address], [address], 11/23/2022 18:40:34 11/23/1911/23/2022 LIPID PANEL WITH RATIO S LDL-choleste rol 70 mg/dL _(yolanda c) normal Refer ence range : <100 Gabriel able range <100 mg/dL for prima ry preve ntion ; <70 mg/dL for patie nts with CHD or diabe tic patie nts with > or = 2 CHD risk facto rs. LDL-C is now calcu lated using the Yarelis n-Hop kins calcu jigneshberlin n, which is a valid ated novel lennox roy than the Fried terrence equat ion in the estim ation of LDL-C . Yarelis jimenes SS et al. DANNI. 2013; 310(1 9): 2061- 2068 (http ://ed ucati on.Qu Martin Linkdex. com/f aq/FA Q164) Not Available [facility] [address] [address] [place], [address], 11/23/2022 18:40:34 11/23/1911/23/2022 LIPID PANEL WITH RATIO S chol/HDLC ratio 3.2 (calc ) <5.0 normal Not Available [facility] [address] [address] [place], [address], 11/23/2022 18:40:34 11/23/1911/23/2022 LIPID PANEL WITH RATIO S LDL/HDL ratio 1.7 (calc ) Below avera ge Risk: <2.34 [place]hent ge Risk: 2.35- 4.12 Moder ate Risk: 4.13- 5.56 High Risk: >5.57 Not Available [facility] [address] [address] , [place], [address], 11/23/2022 18:40:34 11/23/1911/23/2022 LIPID PANEL WITH RATIO S non HDL cholesterol 92 mg/dL _(yolanda c) <130 normal For patie nts with diabe martín plus 1 major ASCVD risk facto r, treat ing to a non-H DL-C goal of <100 mg/dL (LDL- C of <70 mg/dL ) is phuc gaston n. Not Available [facility] [address] [place], [address], 11/23/2022 18:40:34 11/23/1911/23/2022 HEMOG LOBIN A1C hemoglobin A1C 7.1 %_of_ total _HGB <5.7 high For someo ne witho ut known diabe martín, a hemog lobin A1c value of 6.5% or great er indic ates that they may have diabe martín and this shoul d be confi rmed with a follo w-up test. For someo ne with known diabe martín, a value <7% indic ates that their diabe martín is well contr olled and a value great er than or equal to 7% indic ates subop timal contr ol. A1c targe ts shoul d be indiv idual ized based on durat ion of diabe martín, age, comor bid condi tions , and other consi derat ions. Curre ntly, no conse nsus exist s ellie bowen use of hemog lobin A1c for diagn osis of diabe martín for child efren. Not Available [facility] [address], [place], [address], 11/23/2022 18:40:35 11/23/1911/23/2022 TSH TSH 1.58 mIU/L normal Refer ence Range > or = 20 Years 0.40- 4.50 Pregn keeley Range s First trime ster 0.26- 2.66 Secon d trime ster 0.55- 2.73 Third trime ster 0.43- 2.91 Not Available [facility] [address] [place], [address], 11/23/2022 18:40:36 11/23/1911/23/2022 T4, FREE T4, free 1.1 NG/dL 0.8-1. 8 normal Not Available [facility] [address], [place], [address], 11/23/2022 18:40:36 11/23/1911/23/2022 SIOMARA SCREE N, IFA, W/REF L TITER AND SONJA HERRING SIOMARA screen, ifa NEGATI VE negati ve normal SIOMARA IFA is a first line scree n for detec ting the prese nce of up to appro ximat keegan 150 autoa ntibo dies in vario us autoi mmune disea ses. A negat surinder SIOMARA IFA resul t sugge sts an SIOMARA-a ssoci ated autoi mmune disea se is not prese nt at this time, but is not defin itive . If there is high clini yolanda suspi cion for Sjogr en's syndr ome, testi ng for anti- SS-A/ Ro antib yessica shoul d be consi dered . Anti- Macrina-1 antib yessica shoul d be consi dered for clini alize suspe cted infla mmato ry myopa josué . AC-0: Negat surinder Inter natio nal Conse nsus on SIOMARA Patte rns (http s://d oi.or g/10. 1515/ [facility]2017- 0052) For addit ional infor lynnette harper e refer to http: //[facility] chris jimenes.Osei stDia gnost ics.c om/fa q/FAQ 177 (This link is being provi ded for infor tommy holland/ educa rory l purpo ses only. ) Not Available [facility] [address] [address] [place], [address], 11/23/2022 18:40:37 03/06/20 23 03/07/2023 IRON, TIBC AND NICOLÁS TIN PANEL iron, total 57 mcg/d L 45-160 normal Not Available [facility] [address] [address] [place], [address], 03/07/2023 02:06:38 03/06/20 23 03/07/2023 IRON, TIBC AND NICOLÁS TIN PANEL iron binding capacity 409 mcg/d L_(ca lc) 250-45 0 normal Not Available [facility] [address] [address] [place], [address], 03/07/2023 02:06:38 03/06/20 23 03/07/2023 IRON, TIBC AND NICOLÁS TIN PANEL % saturation 14 %_(ca lc) 16-45 low Not Available [facility] [address], [address], 03/07/2023 02:06:38 03/06/20 23 03/07/2023 IRON, TIBC AND NICOLÁS TIN PANEL ferritin 115 NG/mL 16-232 normal Not Available [address], [address], 03/07/2023 02:06:38 03/06/20 23 03/07/2023 LIPID PANEL WITH RATIO S cholesterol, total 156 mg/dL <200 normal Not Available [address], [address], 03/07/2023 02:06:40 03/06/20 23 03/07/2023 LIPID PANEL WITH RATIO S HDL cholesterol 56 mg/dL > or = 50 normal Not Available [address], [address], 03/07/2023 02:06:40 03/06/20 23 03/07/2023 LIPID PANEL WITH RATIO S triglyceride s 105 mg/dL <150 normal Not Available [address], [address], 03/07/2023 02:06:40 03/06/20 23 03/07/2023 LIPID PANEL WITH RATIO S LDL-choleste rol 80 mg/dL _(yolanda c) normal Refer ence range : <100 Gabriel able range <100 mg/dL for prima ry preve ntion ; <70 mg/dL for patie nts with CHD or diabe tic patie nts with > or = 2 CHD risk facto rs. LDL-C is now calcu lated using the Yarelis n-Hop kins adelinau ja n, which is a valid ated novel lennox roy than the Fried terrence equat ion in the estim ation of LDL-C . Yarelis jimenes SS et al. DANNI. 2013; 310(1 9): 2061- 2068 (http ://ed ucati on.Qu Martin Shoptagrs. com/f aq/FA Q164) Not Available [address], [place], [address], 03/07/2023 02:06:40 03/06/20 23 03/07/2023 LIPID PANEL WITH RATIO S chol/HDLC ratio 2.8 (calc ) <5.0 normal Not Available [facility] [address] , [place], [address], 03/07/2023 02:06:40 03/06/20 23 03/07/2023 LIPID PANEL WITH RATIO S LDL/HDL ratio 1.4 (calc ) Below avera ge Risk: <2.34 [place] Risk: 2.35- 4.12 Moder ate Risk: 4.13- 5.56 High Risk: >5.57 Not Available [facility] [address], [place], [address], 03/07/2023 02:06:40 03/06/20 23 03/07/2023 LIPID PANEL WITH RATIO S non HDL cholesterol 100 mg/dL _(yolanda c) <130 normal For patie nts with diabe martín plus 1 major ASCVD risk facto r, treat ing to a non-H DL-C goal of <100 mg/dL (LDL- C of <70 mg/dL ) is consi dered a thera peuti c optio n. Not Available [facility] [address] , [place], [address], 03/07/2023 02:06:40 03/06/20 23 03/07/2023 COMPR EHENS SURINDER METAB OLIC PANEL glucose 115 mg/dL 65-99 high Fasti ng refer ence inter dave For someo ne witho ut known diabe martín, a gluco se value betwe en 100 and 125 mg/dL is consi stent with predi abete s and shoul d be confi rmed with a follo w-up test. Not Available [facility] [address] [address] [place], [address], 03/07/2023 02:06:41 03/06/20 23 03/07/2023 COMPR EHENS SURINDER METAB OLIC PANEL urea nitrogen (BUN) 15 mg/dL 7-25 normal Not Available [address], [address], 03/07/2023 02:06:41 03/06/20 23 03/07/2023 COMPR EHENS SURINDER METAB OLIC PANEL creatinine 0.88 mg/dL 0.50-1 .03 normal Not Available [address], [address], 03/07/2023 02:06:41 03/06/20 23 03/07/2023 COMPR EHENS SURINDER METAB OLIC PANEL eGFR 79 mL/mi n/1.7 3m2 > or = 60 normal Not Available [address], [address], 03/07/2023 02:06:41 03/06/20 23 03/07/2023 COMPR EHENS SURINDER METAB OLIC PANEL BUN/creatini ne ratio SEE NOTE: (calc ) 6-22 Not Repor kwan: BUN and Creat inine are withi n refer ence range . Not Available [address], [address], 03/07/2023 02:06:41 03/06/20 23 03/07/2023 COMPR EHENS SURINDER METAB OLIC PANEL sodium 141 mmol/ L 135-14 6 normal Not Available [facility] [address], [address], 03/07/2023 02:06:41 03/06/20 23 03/07/2023 COMPR EHENS SURINDER METAB OLIC PANEL potassium 4.3 mmol/ L 3.5-5. 3 normal Not Available [facility] [address], [address], 03/07/2023 02:06:41 03/06/20 23 03/07/2023 COMPR EHENS SURINDER METAB OLIC PANEL chloride 103 mmol/ L 98-110 normal Not Available [facility] [place] [address] [address], [place], [address], 03/07/2023 02:06:41 03/06/20 23 03/07/2023 COMPR EHENS SURINDER METAB OLIC PANEL carbon dioxide 26 mmol/ L 20-32 normal Not Available [address], [address], 03/07/2023 02:06:41 03/06/20 23 03/07/2023 COMPR EHENS SURINDER METAB OLIC PANEL calcium 9.9 mg/dL 8.6-10 .4 normal Not Available [address], [address], 03/07/2023 02:06:41 03/06/20 23 03/07/2023 COMPR EHENS SURINDER METAB OLIC PANEL protein, total 7.4 g/dL 6.1-8. 1 normal Not Available [address], [address], 03/07/2023 02:06:41 03/06/20 23 03/07/2023 COMPR EHENS SURINDER METAB OLIC PANEL albumin 4.7 g/dL 3.6-5. 1 normal Not Available [address], [address], 03/07/2023 02:06:41 03/06/20 23 03/07/2023 COMPR EHENS SURINDER METAB OLIC PANEL globulin 2.7 g/dL_ (calc ) 1.9-3. 7 normal Not Available [address], [address], 03/07/2023 02:06:41 03/06/20 23 03/07/2023 COMPR EHENS SURINDER METAB OLIC PANEL albumin/glob ulin ratio 1.7 (calc ) 1.0-2. 5 normal Not Available [address], [address], 03/07/2023 02:06:41 03/06/20 23 03/07/2023 COMPR EHENS SURINDER METAB OLIC PANEL bilirubin, total 0.5 mg/dL 0.2-1. 2 normal Not Available [address] [address] [place], [address], 03/07/2023 02:06:41 03/06/20 23 03/07/2023 COMPR EHENS SURINDER METAB OLIC PANEL alkaline phosphatase 28 U/L 37-153 low Not Available [address] [address] [place], [address], 03/07/2023 02:06:41 03/06/20 23 03/07/2023 COMPR EHENS SURINDER METAB OLIC PANEL AST 14 U/L 10-35 normal Not Available [address] [address] [place], [address], 03/07/2023 02:06:41 03/06/20 23 03/07/2023 COMPR EHENS SURINDER METAB OLIC PANEL ALT 13 U/L 6-29 normal Not Available [address] [address] [place], [address], 03/07/2023 02:06:41 03/06/20 23 03/07/2023 HEMOG LOBIN A1C hemoglobin A1C 6.1 %_of_ total _HGB <5.7 high For someo ne witho ut known diabe martín, a hemog lobin A1c value betwe en 5.7% and 6.4% is consi stent with predi abete s and shoul d be confi rmed with a follo w-up test. For someo ne with known diabe martín, a value <7% indic ates that their diabe martín is well contr olled . A1c targe ts shoul d be indiv idual ized based on durat ion of diabe martín, age, comor bid condi tions , and other consi derat ions. This assay resul t is consi stent with an incre ased risk of diabe martín. Curre ntly, no conse nsus exist s ellie bowen use of hemog lobin A1c for diagn osis of diabe martín for child efren. Not Available [address], [address], 03/07/2023 02:06:42 03/06/20 23 03/07/2023 MAGNE SIUM magnesium 2.1 mg/dL 1.5-2. 5 normal Not Available [facility] [address], [address], 03/07/2023 02:06:43 03/06/2003/07/2023 CBC (INCL UDES DIFF/ PLT) white blood cell count 7.3 thous and/u L 3.8-10 .8 normal Not Available [address], [address], 03/07/2023 02:06:44 03/06/20 23 03/07/2023 CBC (INCL UDES DIFF/ PLT) red blood cell count 4.79 lolis on/uL 3.80-5 .10 normal Not Available [address], [address], 03/07/2023 02:06:44 03/06/20 23 03/07/2023 CBC (INCL UDES DIFF/ PLT) hemoglobin 13.5 g/dL 11.7-1 5.5 normal Not Available [facility] [address], [address], 03/07/2023 02:06:44 03/06/20 23 03/07/2023 CBC (INCL UDES DIFF/ PLT) hematocrit 41.6 % 35.0-4 5.0 normal Not Available [facility] [address], [address], 03/07/2023 02:06:44 03/06/20 23 03/07/2023 CBC (INCL UDES DIFF/ PLT) MCV 86.8 fL 80.0-1 00.0 normal Not Available [address], [address], 03/07/2023 02:06:44 03/06/20 23 03/07/2023 CBC (INCL UDES DIFF/ PLT) MCH 28.2 pg 27.0-3 3.0 normal Not Available [address], [address], 03/07/2023 02:06:44 03/06/20 23 03/07/2023 CBC (INCL UDES DIFF/ PLT) MCHC 32.5 g/dL 32.0-3 6.0 normal Not Available [address], [address], 03/07/2023 02:06:44 03/06/20 23 03/07/2023 CBC (INCL UDES DIFF/ PLT) RDW 13.9 % 11.0-1 5.0 normal Not Available [address], [address], 03/07/2023 02:06:44 03/06/20 23 03/07/2023 CBC (INCL UDES DIFF/ PLT) platelet count 363 thous and/u L 140-40 0 normal Not Available [address], [address], 03/07/2023 02:06:44 03/06/20 23 03/07/2023 CBC (INCL UDES DIFF/ PLT) MPV 10.3 fL 7.5-12 .5 normal Not Available [address], [address], 03/07/2023 02:06:44 03/06/20 23 03/07/2023 CBC (INCL UDES DIFF/ PLT) absolute neutrophils 4329 cells /uL 1500-7 800 normal Not Available [address], [address], 03/07/2023 02:06:44 03/06/20 23 03/07/2023 CBC (INCL UDES DIFF/ PLT) absolute lymphocytes 2234 cells /uL 850-39 00 normal Not Available [address], [address], 03/07/2023 02:06:44 03/06/20 23 03/07/2023 CBC (INCL UDES DIFF/ PLT) absolute monocytes 350 cells /uL 200-95 0 normal Not Available [address], [address], 03/07/2023 02:06:44 03/06/20 23 03/07/2023 CBC (INCL UDES DIFF/ PLT) absolute eosinophils 329 cells /uL 15-500 normal Not Available [address], [address], 03/07/2023 02:06:44 03/06/20 23 03/07/2023 CBC (INCL UDES DIFF/ PLT) absolute basophils 58 cells /uL 0-200 normal Not Available [address], [address], 03/07/2023 02:06:44 03/06/20 23 03/07/2023 CBC (INCL UDES DIFF/ PLT) neutrophils 59.3 % normal Not Available [address], [address], 03/07/2023 02:06:44 03/06/2003/07/2023 CBC (INCL UDES DIFF/ PLT) lymphocytes 30.6 % normal Not Available [facility] [address], [address], 03/07/2023 02:06:44 03/06/20 23 03/07/2023 CBC (INCL UDES DIFF/ PLT) monocytes 4.8 % normal Not Available [address], [address], 03/07/2023 02:06:44 03/06/20 23 03/07/2023 CBC (INCL UDES DIFF/ PLT) eosinophils 4.5 % normal Not Available [facility] [address], [address], 03/07/2023 02:06:44 03/06/20 23 03/07/2023 CBC (INCL UDES DIFF/ PLT) basophils 0.8 % normal Not Available [facility] [address], [address], 03/07/2023 02:06:44 03/06/20 23 03/07/2023 VITAM IN B12/F OLATE , SERUM PANEL vitamin B12 226 pg/mL 200-11 00 normal Pleas e Note: Altho ugh the refer ence range for vitam in B12 is 200-1 100 pg/mL , it has been repor kwan that betwe en 5 and 10% of patie nts with value s betwe en 200 and 400 pg/mL may exper ience neuro psych iatri c and hemat ologi c abnor malit ies due to occul t B12 defic iency ; less than 1% of patie nts with value s above 400 pg/mL will have sympt oms. Not Available [facility] [address], [address], 03/07/2023 02:06:45 03/06/20 23 03/07/2023 VITAM IN B12/F OLATE , SERUM PANEL folate, serum 6.7 NG/mL normal Refer ence Range Low: <3.4 Borde rline : 3.4-5 .4 Shameka l: >5.4 Not Available [facility] [address], [address], 03/07/2023 02:06:45 11/30/19 22 11/02/2021 MAMMO , scree adam, digit al, bilat eral No observ ation record ed. [id number] [facility] Medical Records [address], [place], [address], 05/31/2022 05:08:20 Result Notes None recorded. Problems Name Problem SNOMED Code Status Onset Date Resolution Date Notes Provider Name and Address Organization Details Recorded Time Dysfunctio n of bilateral eustachian tubes 4224998753139 100 Active 2021 Not Available [facility] 3 04:54:23 Benign essential hypertensi on 8219652 Active 2017 Not Available [facility] 3 04:54:23 Mixed hyperlipid emia 182308534 Active 2017 Not Available [facility] 3 04:54:23 Restless legs 37948965 Active 2019 Not Available [facility] 3 04:54:23 Onychomyco sis 360887187 Active 2021 Not Available [facility] 3 04:54:23 Type 2 diabetes mellitus 76177897 Active 2017 Not Available [facility] 3 04:54:23 Well controlled type 2 diabetes mellitus 476402439 Active 2021 Not Available [facility] 3 04:54:23 Anxiety 57027772 Active 2019 Not Available [facility] 3 04:54:23 Upper respirator y infection 79015860 Active 2021 Not Available [facility] 3 04:54:24 Otitis media 94520599 Active 2021 Not Available [facility] 3 04:54:24 Obstructiv e sleep apnea syndrome 48952139 Active 2019 ANA Hughes null, [employer] 3 12:06:28 COVID-19 287231047 Active 2021 Not Available [facility] 3 04:54:24 Uncontroll ed type 2 diabetes mellitus 770606920 Active 2022 JUSTIN Mcginnis [address] [place] [address], [address] [address], [place], [address] , [employer] 3 09:54:15 Hyperlipid emia 94915312 Active 2022 JUSTIN Mcginnis [address], [place], [address] , [facility] [employer] [facility] [employer] [facility] 3 09:54:18 Dry eyes 371941092 Active 2022 JUSTIN Mcginnis [address], [place], [address] , [employer] [facility] 3 10:07:47 Acute upper respirator y infection 17654302 Active 2022 JUSTIN Mcginnis [address], [place], [address] , [employer] [facility] 3 16:31:39 Notes:COVID-19 pos 12/11/21 Problem Notes None recorded. Procedures Surgical History Date Name Laterality Status Provider Name and Address Organization Details Recorded Time Tonsillectomy completed Not Available [facility] 05/31/2022 04:44:18 Imaging Results None recorded. Procedure Notes None recorded. Medical Equipment None Reported. Allergies No known drug allergies Medications Name Sig Start Date Stop Date Status Note LastModified by Organization Details LastModified Time Mirena 21 mcg/24 hr (up to 8 years) 52 mg intrauterin e device Take 1 device by intrauter ine route. active Not Available Not Available No t Available clotrimazol e 10 mg sathya Take 1 tablet 5 times a day by oral route. 11/18 completed Not Available Not Available Not Available doxycycline hyclate 100 mg capsule 11/18 completed Not Available Not Available Not Available cetirizine 10 mg tablet 08/04 completed Not Available Not Available Not Available atorvastati n 10 mg tablet Take 1 tablet every day by oral route in the evening. 2022 active Not Available Not Available Not Avai lable alprazolam 1 mg tablet TAKE 1/2 TO 1 TABLET BY MOUTH DAILY NEEDED active Not Available Not Available No t Available fluconazole 150 mg tablet TK 1 T PO FOR 1 DOSE AND MAY REPEAT ANOTHER DAY IF NEEDED 01/04 completed Not Available Not Available Not Available prednisone 20 mg tablet 05/16 completed Not Available Not Available Not Available phentermine 15 mg capsule Take 1 capsule every day by oral route. 08/08 completed Not Available Not Available Not Available triamcinolo ne acetonide 0.1 % topical cream 08/18 completed Not Available Not Available Not Available fenofibrate micronized 134 mg capsule TAKE 1 CAPSULE DAILY AT BEDTIME active Not Available Not Available No t Available terbinafine HCl 250 mg tablet TAKE 1 TABLET BY MOUTH EVERY DAY 08/18 completed Not Available Not Available Not Available ropinirole 2 mg tablet TAKE 2 TABLETS BY MOUTH DAILY DIRECTED active Not Available Not Available No t Available cyanocobala min (vit B-12) 1,000 mcg/mL injection solution active Not Available Not Available Not Available metformin 1,000 mg tablet TAKE 1 TABLET TWICE A DAY active Not Available Not Available No t Available lisinopril 10 mg tablet TAKE 1 TABLET DAILY active Not Available Not Available No t Available Advair Diskus 250 mcg-50 mcg/dose powder for inhalation Inhale 1 puff twice a day by inhalatio n route. 01/20 completed Not Available Not Available Not Available montelukast 10 mg tablet TAKE 1 TABLET DAILY 08/15 completed Not Available Not Available Not Available cefuroxime axetil 500 mg tablet TAKE 1 TABLET BY MOUTH EVERY 12 HOURS active Not Available Not Available No t Available methylpredn isolone 4 mg tablets in a dose pack FOLLOW PACKAGE DIRECTION S 01/19 completed Not Available Not Available Not Available albuterol sulfate HFA 90 mcg/actuati on aerosol inhaler USE 2 INHALATIO NS EVERY 4 TO 6 HOURS NEEDED active Not Available Not Available No t Available fluticasone propionate 50 mcg/actuati on nasal spray,suspe nsion SHAKE LIQUID AND USE 2 SPRAYS IN EACH NOSTRIL DAILY active Not Available Not Available No t Available lisinopril 2.5 mg tablet Take 1 tablet every day by oral route. 07/20 completed Not Available Not Available Not Available loratadine 10 mg tablet TAKE 1 TABLET BY MOUTH DAILY 08/18 completed Not Available Not Available Not Available amoxicillin 875 mg-potassiu m clavulanate 125 mg tablet TAKE 1 TABLET BY MOUTH EVERY 12 HOURS 03/08 completed Not Available Not Available Not Available neomycin 3.5 mg/g-polymy kaylene B 10,000 unit/g-dexa meth 0.1 % eye oint active Not Available Not Available Not Available OcuSoft Lid Scrub packet USE 1 PAD TOPICALL ON THE LIDS OF BOTH EYES QHS 12/20 completed Not Available Not Available Not Available cyclobenzap rine 5 mg tablet TAKE 1 TABLET BY MOUTH DAILY FOR 10 DAYS USE NEEDED FOR PAIN AT NIGHT 08/18 completed Not Available Not Available Not Available duloxetine 60 mg capsule,del ayed release TAKE 1 CAPSULE DAILY active Not Available Not Available No t Available quetiapine 50 mg tablet TAKE 2 TABLETS DAILY DIRECTED 2022 active Not Available Not Available Not Avai lable Refresh Optive Sensitive (PF) 0.5 %-0.9 % eye drops in a dropperette INSTILL ONE DROP INTO OU BID TO QID 08/18 completed Not Available Not Available Not Available Zyrtec 10 mg capsule Take 1 capsule every day by oral route. 2016 active Not Available Not Available Not Avai lable OneTouch Delica Lancets 33 gauge USE ONE LANCET TO TEST QID 08/31 completed Not Available Not Available Not Available OneTouch Verio test strips Take 1 strip 4 times a day by miscell. route as directed. active Not Available Not Available No t Available loteprednol etabonate 0.5 % eye gel drops INSTILL 1 DROP IN BOTH EYES FOUR TIMES DAILY FOR 2 WEEKS 12/20 completed Not Available Not Available Not Available Virtussin AC 10 mg-100 mg/5 mL oral liquid TK 5-10 ML PO Q 4 H PRN 08/04 completed Not Available Not Available Not Available Farxiga 10 mg tablet TAKE 1 TABLET DAILY active Not Available Not Available No t Available OneTouch Verio IQ Meter USE UTD 08/31 completed Not Available Not Available Not Available Trulicity 1.5 mg/0.5 mL subcutaneou s pen injector INJECT ONCE A WEEK as directed 11/27 completed Not Available Not Available Not Available Restasis MultiDose 0.05 % eye drops active Not Available Not Available Not Available Systane Complete 0.6 % eye drops INSTILL 1 DROP INTO OU TWO TO FOUR TIMES D 12/20 completed Not Available Not Available Not Available FreeStyle Palmer 14 Day Cutler USE UTD TO MONITOR BLOOD SUGAR active Not Available Not Available No t Available FreeStyle Palmer 14 Day Sensor kit USE UTD TO MONITOR BLOOD SUGAR active Not Available Not Available No t Available Paxlovid 300 mg (150 mg x 2)-100 mg tablets in a dose pack 300 mg nirmatrel vir (two 150 mg tablets) with 100 mg ritonavir (one 100 mg tablet) with all three tablets taken together orally twice daily for 5 days. stop atorvasta tin for 7 days 07/20 completed Not Available Not Available Not Available Mounjaro 7.5 mg/0.5 mL subcutaneou s pen injector Inject 7.5 mg every week by subcutane ous route. 11/27 completed Not Available Not Available Not Available Mounjaro 5 mg/0.5 mL subcutaneou s pen injector ADMINISTE R 5 MG UNDER THE SKIN EVERY WEEK DIRECTED 11/27 completed Not Available Not Available Not Available Mounjaro 15 mg/0.5 mL subcutaneou s pen injector INJECT 15 MG UNDER THE SKIN ONE DAY A WEEK 01/22 completed Not Available Not Available Not Available Mounjaro 10 mg/0.5 mL subcutaneou s pen injector INJECT 10 MG UNDER THE SKIN EVERY WEEK 11/27 completed Not Available Not Available Not Available Mounjaro 12.5 mg/0.5 mL subcutaneou s pen injector active Not Available Not Available Not Available Mounjaro 2.5 mg/0.5 mL subcutaneou s pen injector ADMINISTE R 2.5MG UNDER THE SKIN EVERY WEEK 09/11 completed Not Available Not Available Not Available Vitals Date Recorded Body height Body temperature Body mass index (BMI) Body weight Respiratory rate Oxygen saturation Oxygen saturation in Arterial blood by Pulse oximetry Heart rate Systolic blood pressure Diastolic blood pressure Provider Name and Address Organization Details Last Updated DateTime 3 165.1 cm 96.3 [degF] 39.8 kg/m2 511906. 58 g 16 /min 98 % 98 % 91 /min 118 mm[Hg] 78 mm[Hg] ANA Hughes [place] [facility] [place] [employer] [facility] 3 09:50:51 Date Recorded Body mass index (BMI) Body height Oxygen saturation Oxygen saturation in Arterial blood by Pulse oximetry Heart rate Respiratory rate Body temperature Body weight Systolic blood pressure Diastolic blood pressure Provider Name and Address Organization Details Last Updated DateTime 2 49.1 kg/m2 152.4 cm 97 % 97 % 87 /min 16 /min 98.5 [degF] 009736. 84 g 128 mm[Hg] 80 mm[Hg] Not Available [facility] 3 04:47:04 Date Recorded Systolic blood pressure Diastolic blood pressure Provider Name and Address Organization Details Last Updated DateTime 12/20/2022 120 mm[Hg] 80 mm[Hg] JUSTIN Mcginnis [address] [facility], [facility] [address], [place], [address], [employer] 12/20/2022 10:48:26 Date Recorded Body height Body temperature Body mass index (BMI) Body weight Respiratory rate Oxygen saturation Oxygen saturation in Arterial blood by Pulse oximetry Heart rate Systolic blood pressure Diastolic blood pressure Provider Name and Address Organization Details Last Updated DateTime 3 165.1 cm 97.6 [degF] 35.1 kg/m2 24945.9 9 g 16 /min 98 % 98 % 109 /min 132 mm[Hg] 78 mm[Hg] ANA Hughes [facility] 3 10:27:49 Date Recorded Body height Provider Name an d Address Organization Details Last Updated DateTime 12/23/2021 152.4 cm Not Available [facility] 3 04:47:05 Date Recorded Body mass index (BMI) Body height Oxygen saturation Oxygen saturation in Arterial blood by Pulse oximetry Heart rate Respiratory rate Body temperature Body weight Systolic blood pressure Diastolic blood pressure Provider Name and Address Organization Details Last Updated DateTime 2 45.5 kg/m2 152.4 cm 96 % 96 % 110 /min 16 /min 96.5 [degF] 724559. 02 g 130 mm[Hg] 98 mm[Hg] Not Available [facility] 3 04:47:04 Social History Question Answer Notes LastModified by Organizat ion Details LastModified Time Tobacco Smoking Status Current Every Day Smoker Not Available [facility] 05/31/2022 04:29:59 What Is Your Level Of Caffeine Consumption? None [id number] Information not available 05/31/2022 How Much Tobacco Do You Chew? None [id number] Information not available 05/31/2022 In The 14 Days Before Symptom Onset, Have You Had Close Contact With A Laboratory-confirm ed COVID-19 While That Case Was Ill? No [id number] Information not available 05/31/2022 In The 14 Days Before Symptom Onset, Have You Had Close Contact With A Person Who Is Under Investigation For COVID-19 While That Person Was Ill? No [id number] Information not available 05/31/2022 What Type Of Diet Are You Following? REGULAR [id number] Information not available 05/31/2022 Which Illicit Or Recreational Drugs Have You Used? None [id number] Information not available 05/31/2022 Have There Been Any Changes To Your Family Or Social Situation? No [id number] Information not available 05/31/2022 Are There Any Guns Present In Your Home? No [id number] Information not available 05/31/2022 Do You Use Insect Repellent Routinely? No [id number] 026 Information not available 05/31/2022 What Is Your Relationship Status? Single [id number] 026 Information not available 05/31/2022 Do You Use Your Seat Belt Or Car Seat Routinely? Yes [id number] Information not available 05/31/2022 Do You Have Smoke And Carbon Monoxide Detectors In Your Home? Yes [id number] Information not available 05/31/2022 At What Age Did You Start Smoking Tobacco? 19 [id number] 026 Information not available 05/31/2022 How Much Tobacco Do You Smoke? 0.5 PPD [id number] 026 Information not available 05/31/2022 Do You Use Sunscreen Routinely? Yes [id number] 026 Information not available 05/31/2022 Have You Recently Traveled Abroad? No [id number] 026 Information not available 05/31/2022 Do You Have Any Dietary Restrictions? No [id number] 026 Information not available 05/31/2022 Sex: Unknown Functional Status Question Answer Note LastModified by Organizat ion Details LastModified Time Do you use any illicit or recreational drugs? No [id number] Information not available 05/31/2022 Do you or have you ever used any other forms of tobacco or nicotine? No [id number].[id number] Information not available 05/31/2022 What is your level of alcohol consumption? None [id number].[id number] [id number] Information not available 05/31/2022 Do you or have you ever used smokeless tobacco? Never used smokeless tobacco MIGRATION.[id number] Information not available 05/31/2022 Are you currently employed? 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 Never used electronic cigarettes MIGRATION.[id number] 7833 Information not available 05/31/2022 What is your exercise level? None [id number].[id number] Information not available 05/31/2022 Mental Status None recorded. Family History Relationship Description Onset Age of this Age Resolved Age Notes LastModified by Organization Details LastModified Time Father No current problems or disability [id number] Not available 05/31/2022 04:44:22 Father General health good [id number] Not available 05/31/2022 04:44:22 Mother No current problems or disability [id number] Not available 05/31/2022 04:44:22 Unspecified Relation Parkinson's disease [id number] Not available 05/31/2022 04:44:22 Unspecified Relation Diabetes mellitus [id number] Not available 05/31/2022 04:44:22 Medical History Condition Response EYE PROBLEMS Y ANXIETY DISORDER Y DIABETES, TYPE Y BRONCHITIS Y SLEEP DISORDER Y DEPRESSION (INCLUDING POST ) Y Gynecological History Statement/Question Response How many live births 1 Abnormal Pap Y Date of Last Pap 04/02/2013 Date of Last Mammogram 11/02/2021 Obstetrics History GPAL:G 1 P 0 0 0 1 Type Value Living 1 Total 1 Past Encounters Encounter ID Performer Location Encounter Start Date Encounter Closed Date Diagnosis/Indication Diagnosis SNOMED-CT Code Diagnosis ICD10 Code Diagnosis Note [id number] JUSTIN Mcginnis [facility] [place] [address] [place] [address] 07/26/2020 00:00:00 07/28/2020 13:28:14 [id number] Eloy Gonzalez MD [facility] Internal [facility] [place] [address] [place] [address] 08/18/2021 00:00:00 08/29/2021 21:30:35 [id number] JUSTIN Mcginnis [facility] Internal [facility] [place] [address] [place] [address] 12/23/2021 00:00:00 12/25/2021 23:51:21 [id number] JUSTIN Mcginnis [facility] Internal [facility] [place] [address] [place] [address] 01/20/2022 00:00:00 01/28/2022 17:13:28 [id number] JUSTIN Mcginnis [facility] Internal [facility] [place] [address] [place] [address] 08/15/2022 09:42:26 08/15/2022 10:14:35 Uncontrolled type 2 diabetes mellitus 374684448 E11.65 change to mounjaro 2.5mg weekly if insurance will approve. repeat labs in october. Hyperlipidemia 41754554 E78.5 Rx for atovastati n 10mg daily. repeat labs in october. Benign ess ential hypertension 9864949 I10 stable on medication Long-term drug therapy 474073141 Z79.899 Screening mammography 24 698197 Z12.31 mammogram due Dry eyes 393602526 H04.1 23 screening Siomara panel Thyroid di sorder screening 156101647 Z13.29 TFTs due [id number] JUSTIN Mcginnis [facility] Internal [facility] [place] [address] [place] [address] 12/20/2022 10:15:48 12/20/2022 10:58:54 Uncontrolled type 2 diabetes mellitus 531148211 E11.65 7.1%. Down from 8.1 in late july. excellent results on mounjaro now at 12.5mg dosing. Hyperlipidemia 76240955 E78.5 atorvastat in 10mg daily. great LDL at 70. Benign ess ential hypertension 5759005 I10 stable on medication Long-term drug therapy 081264373 Z79.899 repeat labs in late Jan. Restless legs 75809168 G 25.81 screening iron studies are needed, b12, folate and magnesium. she is at max dose requip 4mg qhs. Screening for malignant neoplasm of colon 984573950 Z12.11 screening colonoscop y still due. Adult heal th examination 103006571 Z00.01 well exam completed Health Concerns Section Related Observation LastModified by Organization Detai ls LastModified Time None Recorded Concern Status LastModified by Organization Details LastModified Time None Recorded Advance Directives Directive None Recorded Payers Encounter Date Sequence Insurance Name Policy Number Policy De La Cruz Covered Member ID De La Cruz Member ID Guarantor Name 08/15/2022 1 [employer] [id number] Rachana Meraz [id number] Rachana Meraz 12/20/2022 1 [employer] [id number] Rachana Meraz [id number] Rachana Mary Meraz Notes Date Note Type Note Provider Name and Address Organization Details Recorded Time 022 text/ht ml Anxiety/DepressionReported bypatient.Severity:denies suicidal ideations; able to maintain relationships; does not interfere with activities of daily living Duration:symptoms lasting over 2 weeks Onset/Timing:still present Context:no major life stressors Modifying Factors:medications as directed Associated Symptoms:denies homicidal ideations; no significant weight gain; no significant weight loss; no visual/auditory hallucinations; no delusions; no shortness of breath; mood good; no anxiety; no crying spells; no panic; no isolation; sleeping well; appetite good; energy good; no apathy; maintaining functionalityDiabetesReported bypatient.Duration:chronic Control:usually well controlled Compliance:compliant with medications; compliant with follow-up visits; compliant with home glucose monitoring;noncompliant with diet Self Care:monitoring glucose daily Context:seeing eye doctor regularly; checking feet regularly;not taking aspirin daily Associated Symptoms:no weight gain; no weight loss; no dizziness; no sweats; no headaches; no confusion; no increased thirst; no increased appetite; no increased urination; no blurred vision; no numbness of feet; no calluses on feet; no fatigue; no blurred vision; no paresthesias Chronic Complications:hypertension: Yes; hyperlipidemia: YesHyperlipidemiaReported bypatient.Duration:chronic Control:usually well controlled Current Therapy:currently taking: (atorvastatin 10mg) Compliance:compliant;noncompliant with diet;does not exercise Complications:no coronary artery disease; no peripheral artery disease; no cardiovascular disease Risk Factors:diabetes;hypertensionHypert ensionReported bypatient.Duration:has noted for years Onset/Timing:better Alleviating Factors:medication Self Care:not under emotional stress Associated Symptoms:no shortness of breath; no fatigue; no palpitations; no decline in exercise capacity; no snoring Not Available [employer] 08/29/2021 21:30:35 022 text/ht ml Anxiety/DepressionReported bypatient.Quality:mood worse;increased anxiety Severity:denies suicidal ideations;interference with household activities;interference with work Context:major life stressors;family problems; in hospital for covid pneumonia Associated Symptoms:denies homicidal ideations;high irritability;anxiety;hypersensitivi ty;depression;loneliness;grieving;r estlessness/agitation;feeling guilty;inability to make decisions;social withdrawal;decreased effectiveness/productivityEar Pain Brief HPIReported bypatient.Location:bilateral Duration:constant pain Quality:shooting pain;dull pain Severity:no fever; able to perform daily activities; no interference with sleep Context:recent URI(viral infection.);smoker Alleviating factors:decongestant (sudafed is the only thing that helps.) Not Available [employer] 12/25/2021 23:51:21 022 text/ht ml Anxiety/DepressionReported bypatient.Quality:symptoms worse in the evening Severity:denies suicidal ideations; able to maintain relationships;interference with sleep Duration:symptoms lasting over 2 weeks Onset/Timing:still present Context:major life stressors Modifying Factors:medications as directed Associated Symptoms:denies homicidal ideations; no significant weight gain; no significant weight loss; no visual/auditory hallucinations; no delusions; no shortness of breath; mood good; no anxiety; no crying spells; no panic; no isolation; sleeping well; appetite good; energy good; no apathy; maintaining functionalityDiabetesReported bypatient.Duration:chronic Control:usually well controlled; treated with diet and oral medications Compliance:compliant with medications; compliant with follow-up visits; compliant with diet; compliant with home glucose monitoring Self Care:monitoring glucose daily Context:seeing eye doctor regularly; checking feet regularly;not taking aspirin daily Associated Symptoms:no weight gain; no weight loss; no dizziness; no sweats; no headaches; no confusion; no increased thirst; no increased appetite; no increased urination; no blurred vision; no numbness of feet; no calluses on feet; no fatigue; no blurred vision; no paresthesias Chronic Complications:hypertension: Yes; hyperlipidemia: YesHyperlipidemiaReported bypatient.Duration:chronic Control:usually well controlled Current Therapy:currently taking: (atorvastatin 10mg) Compliance:compliant; compliant with diet; exercises Complications:no coronary artery disease; no peripheral artery disease; no cardiovascular disease Risk Factors:diabetes;hypertensionHypert ensionReported bypatient.Duration:has noted for years Onset/Timing:better Alleviating Factors:medication Self Care:not under emotional stress Associated Symptoms:no shortness of breath; no fatigue; no palpitations; no decline in exercise capacity; no snoring Not Available [place] [facility] 01/28/2022 17:13:28 023 text/ht ml Anxiety/DepressionReported bypatient.Quality:symptoms worse in the evening Severity:denies suicidal ideations; able to maintain relationships;interference with sleep Duration:symptoms lasting over 2 weeks Onset/Timing:still present Context:no major life stressors Modifying Factors:rx Associated Symptoms:denies homicidal ideations; no significant weight gain; no significant weight loss; no visual/auditory hallucinations; no delusions; no shortness of breathDiabetesReported bypatient.Duration:chronic Control:usually well controlled; treated with diet and oral medications Compliance:compliant with medications; compliant with follow-up visits; compliant with diet; compliant with home glucose monitoring; had eye doctor visit in last year;has not had dietitian visit in last year;does not wear a medic alert bracelet or necklace;does not keep rapid-acting carbohydrate in car Self Care:monitoring glucose daily Context:normal range of home blood sugars (in the low 100s); seeing eye doctor regularly; checking feet regularly;not taking aspirin daily Associated Symptoms:no weight gain; no weight loss; no dizziness; no sweats; no headaches; no confusion; no increased thirst; no increased appetite; no increased urination; no blurred vision; no numbness of feet; no calluses on feet; no coronary artery disease; no kidney disease; no peripheral vascular disease; no diabetic retinopathy; no diabetic neuropathyHyperlipidemiaReported bypatient.Duration:chronic Control:usually well controlled Compliance:compliant; compliant with diet; exercises Complications:no coronary artery disease; no peripheral artery disease; no cardiovascular disease Risk Factors:diabetes;hypertension;obesi tyHypertensionReported bypatient.Duration:lasts hours Onset/Timing:better Alleviating Factors:medication Associated Symptoms:no shortness of breath; no fatigue; no palpitations; no decline in exercise capacity; no snoring JUSTNI Mcginnis [address] [facility] [address], [place], [address], [place] [facility] [place] [facility] 08/30/2022 23:36:59 023 text/ht ml Anxiety/DepressionReported bypatient.Quality:symptoms worse in the evening Severity:denies suicidal ideations; able to maintain relationships; does not interfere with activities of daily living Duration:symptoms lasting over 2 weeks Onset/Timing:still present Context:no major life stressors Associated Symptoms:denies homicidal ideations; no significant weight gain; no significant weight loss; no visual/auditory hallucinations; no delusions; no shortness of breathDiabetesReported bypatient.Duration:chronic Control:usually well controlled Compliance:compliant with medications; compliant with follow-up visits; compliant with diet; compliant with home glucose monitoring; had eye doctor visit in last year; wears a medic alert bracelet or necklace;has not had dietitian visit in last year;does not wear a medic alert bracelet or necklace;does not keep rapid-acting carbohydrate in car Self Care:monitoring glucose weekly Context:normal range of home blood sugars (in the low 100s); seeing eye doctor regularly; checking feet regularly;not taking aspirin daily Associated Symptoms:no weight gain; no weight loss; no dizziness; no sweats; no headaches; no confusion; no increased thirst; no increased appetite; no increased urination; no blurred vision; no numbness of feet; no calluses on feet; no coronary artery disease; no kidney disease; no peripheral vascular disease; no diabetic retinopathy; no diabetic neuropathyHyperlipidemiaReported bypatient.Duration:chronic Control:usually well controlled Compliance:compliant; compliant with diet; exercises Complications:no coronary artery disease; no peripheral artery disease; no cardiovascular disease Risk Factors:diabetes;hypertensionHypert ensionReported bypatient.Duration:has noted for years Onset/Timing:better Alleviating Factors:medication Associated Symptoms:no shortness of breath; no fatigue; no palpitations; no decline in exercise capacity; no snoring Wellness JUSTIN Mcginnis [address] [facility] [facility] [address], [place], [address], [facility] 12/20/2022 10:59:41 OBGyn Episode No OBEpisode recorded.
--- OUTSIDE RECORDS SUMMARY | 2024-09-04 01:36 | XMS_ITS | Clinical Summary ---
Author Organization [facility] Address [address] [place] [address] Care Team Providers Care Director Of Manufacturing Name Role Phone Unavailable Primary Care Provider Unavailabl e Source Comments [facility],non-[facility] Affiliates and Associated Physician Practices is amultiple site organization consisting of ambulatory clinics and [place]in [place] and [place]. This disclosure is being madepursuant to the Care Everywhere program and may not contain all information available regarding this patient. Last updated 17.[facility] Social History Tobacco Use Types Packs/Day Years Used Date Smoking Tobacco: Never Assessed Comments Unknown Sex and Gender Information Value Date Recorded Sex Assigned at Not on file Legal Sex Female 8:33 PM CDT Gender Identity Not on file Sexual Orientation Not on file Plan of Treatment Health Maintenance Due Date Last Done Comments COLOGUARD (AGES 45-75) - COL ON CA SCREENING 1970 COLON MONITORING 1970 COLONOSCOPY - COLON CA SCREENING 1970 CT COLONOGRAPHY - COLON CA SCREENING 1970 Colorectal Cancer Screening 1970 FIT - COLON CA SCREENING 1970 FLEX SIG - COLON CA SCREENING 1970 LIPID TESTING 1970 MAMMOGRAM 1970 HIV SCREENING 1985 HEPATITIS C SCREENING 01/22/1988 DTAP/TDAP/TD VACCINES (1 - Tdap) 1989 HEPATITIS B VACCINE (1 of 3 - 19+ 3-dose series) 1989 PNEUMOCOCCAL VACCINE 50+ (1 of 1 - PCV) 01/27/2020 ZOSTER VACCINE (1 of 2) 01/27/2020 COVID-19 VACCINE ( - 2023-2 5 season) 2023 DEPRESSION SCREENING 04/02/2024 INFLUENZA VACCINE (Season Ended) 2024 HIB VACCINE Aged Out No longer eligi ble based on patient's age to complete this topic HPV VACCINE Aged Out No longer eligi ble based on patient's age to complete this topic MENINGOCOCCAL (Group B) VACC INE SHARED DECISION-MAKING Aged Out No longer eligibl e based on patient's age to complete this topic MENINGOCOCCAL GROUPS A/C/Y/W VACCINE Aged Out No longer eligible b ased on patient's age to complete this topic
--- OUTSIDE RECORDS SUMMARY | 2024-09-04 01:36 | XMS_ITS | Data Portability ---
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 IUD in place. colonoscopy screening due: eye exam due in a few months. Not available 05/29/2024 09:56:43 Plan of Treatment Reminders Order Date Submit Date Provider Last Modified By Organization Details Last Modified Time Details Appointments ANY 15 2024 08:30A M JUSTIN Mcginnis Not available Not available Not available Lab lipid panel, serum 2024 025 [email or web address] [facility], [address], [place], [address], 08/28/2024 09:17:17 HbA1c (hemoglob in A1c), blood 2024 025 [email or web address] [facility], [address], [place], [address], 08/28/2024 09:17:17 CMP, serum or plasma 2024 025 [email or web address] [facility], [address], [place], [address], 08/28/2024 09:17:17 CBC w/ auto diff 2024 025 [email or web address], [address], [place], [address], 08/28/2024 09:17:16 TSH + free T4, serum 2024 025 [email or web address], [address], [place], [address], 08/28/2024 09:17:17 vitamin B12 + folate, serum or blood 2024 025 [email or web address], [address] [place], [address], 08/28/2024 09:17:17 lipid panel, serum 2024 025 [facility], [address] [place], [address], 07/24/2024 16:38:58 CMP, serum or plasma 2024 025 [email or web address], [address], [place], [address], 07/24/2024 16:39:12 CBC w/ auto diff 2024 025 [email or web address], [address], [place], [address], 07/24/2024 16:39:48 vitamin B12 + folate, serum or blood 2024 025 [email or web address], [address] [place], [address], 07/24/2024 16:39:57 HbA1c (hemoglob in A1c), blood 2024 025 JOSE [facility], [address] [place], [address], 07/14/2024 15:37:24 microalbu min/creat inine, mass ratio, urine 2024 025 [email or web address] [facility], [address], [place], [address], 07/24/2024 16:38:47 vitamin B12 + folate, serum or blood 2023 025 [email or web address] [facility], [address], [place], [address], 08/28/2024 14:57:02 HbA1c (hemoglob in A1c), blood 2023 025 [email or web address] [facility], [address], [place], [address], 08/28/2024 14:56:47 lipid panel, serum 2023 025 [email or web address] [facility], [address], [place], [address], 08/28/2024 14:56:34 CMP, serum or plasma 2023 025 [email or web address] [facility], [address], [place], [address], 08/28/2024 14:56:56 CBC w/ auto diff 2023 025 [email or web address] [facility], [address], [place], [address], 08/28/2024 14:57:09 lipid panel, serum 2023 024 [email or web address] [facility], [address], [place], [address], 10/30/2023 10:10:28 HbA1c (hemoglob in A1c), blood 2023 024 [facility], [address], [place], [address], 10/30/2023 10:10:28 microalbu min/creat inine, mass ratio, urine 2023 024 [email or web address] [facility], [address], [place], [address], 10/30/2023 10:10:28 CMP, serum or plasma 2023 024 [email or web address], [address], [place], [address], 10/30/2023 10:10:28 CBC w/ auto diff 2023 024 [email or web address] [facility], [address], [place], [address], 10/30/2023 10:10:29 vitamin B12 + folate, serum or blood 2023 024 [facility], [address], [place], [address], 10/30/2023 10:10:29 TSH + free T4, serum 2023 024 [facility], [address], [place], [address], 10/25/2023 16:19:27 Referral None recorded. Procedures colonosco py screening (PROC) 2024 025 [facility], [address], [place], [address], 09/03/2024 12:37:06 home sleep testing (PROC) 2023 024 [facility], [address], [address], [place], [address], 12/27/2023 18:30:04 lexiscan cardiolit e stress test (PROC) [address] [facility], [address], [address], [place], [address], 12/06/2023 09:54:20 Surgeries None recorded. Imaging MAMMO, screening , digital, bilateral 2024 025 [facility] (Mammogram), [address], [place], [address], 09/03/2024 12:36:22 US, duplex, carotid artery [address] (Imaging), [address], [place], [address], 10/22/2023 10:04:41 Medication Orders Strattera 60 mg capsule 2024 025 [id number], [address], [place], [address], 08/28/2024 09:17:19 atomoxeti ne 40 mg capsule 2024 025 [email or web address] [facility] #[id number], [address], [place], [address], 08/28/2024 09:15:55 cyanocoba indira (vit B-12) 1,000 mcg/mL injection solution 2023 024 [id number], [address] , [place], [address], 11/27/2023 11:50:48 Mounjaro 15 mg/0.5 mL subcutane ous pen injector 2023 024 [email or web address], [address] [place] [address], [address], 08/07/2023 17:04:37 alprazola m 1 mg tablet 2023 024 [id number], [address], [place], [id number], 08/07/2023 17:04:43 Patient TargetsNo targets recorded. Patient Instructions Encounter Date Encounter Id Patient Instructions Last Modified By Organization Details Last Modified Time 11/27/2023 [id number] A healthy lifestyle: care instructions Not available 11/27/2023 11:50:44 05/29/2024 [id number] A healthy lifestyle: care instructions Not available 05/29/2024 10:06:57 Reason for Referral None Reported. Results Created Date Observation Date Name Description Value Unit Range Abnormal Flag Note LastModifiedBy Organization Detail LastModifiedTime 12/04/19 24 12/04/2023 pap, IG + HR HPV Pap, HPV negati ve Not Available Not Available 14:55:39 12/27/19 24 12/27/2023 home sleep testi ng (PROC ) No observ ation record ed. [facility] [address] [place], [place], [address], 01/07/2024 10:48:32 Result Notes None recorded. Problems Name Problem SNOMED Code Status Onset Date Resolution Date Notes Provider Name and Address Organization Details Recorded Time Obstructive sleep apnea syndrome 37338519 Active 2023 JUSTIN Mcginnis Attn: Damian freeman,[address] [place], [address], [place] [facility] 4 21:49:07 Well controlled type 2 diabetes mellitus 847431061 Active 2023 JUSTIN Mcginnis Attn: Damian freeman,[address] [facility], [place], [address], [place] 4 21:49:08 Generalized anxiety disorder 71052603 Active 2023 JUSTIN Mcginnis Attn: Accountin g,[address] [facility], [place], [address], [place] [facility] 4 21:49:09 Mixed hyperlipidemia 358870639 Active 2023 JUSTIN Mcginnis Attn: Accountin g,[address] [facility], [place], [address], [place] [facility] 5 09:21:06 Restless legs 39897867 Active 2023 JUSTIN Mcginnis Attn: Accountin g,[address] [facility], [place], [address], [place] [facility] 4 21:49:11 Benign essential hypertension 9109112 Active 2023 JUSTIN Mcginnis Attn: Accountin g,[address] [facility], [place], [address], [place] [facility] 4 21:49:12 Vitamin B12 deficiency (non anemic) 94824826 Active 2023 JUSTIN Mcginnis Attn: Accountin g,[address] [facility], [place], [address], [place] [facility] 4 21:49:14 Body mass index 25-29 - overweight 127639360 Active 2023 JUSTIN Mcginnis Attn: Accountin g,[address] [facility], [place], [address], [place] [facility] 4 21:49:15 Overweight 834480605 Active 2023 JUSTIN Mcginnis Attn: Accountin g,[address] [facility], [place], [address], [place] [facility] 4 21:49:16 Long-term drug therapy Active 2023 JUSTIN Mcginnis Attn: Accountin g,[address] [facility], [place], [address], [place] [facility] 4 21:49:18 Poor focus 078636499 Active 2024 JUSTIN Mcginnis Attn: Damian freeman,[address] [facility], [place], [address], [facility] 5 21:29:32 Overweight in adulthood with body mass index of 25 or more but less than 30 231523536 Active 2024 JUSTIN Mcginnis Attn: Damian freeman,[address] [facility], [place], [address], [facility] 5 09:06:53 Type 2 diabetes mellitus 40972178 Active 2024 JUSTIN Mcginnis Attn: Damian freeman,[address] [facility], [place], [address], [facility] 5 09:21:03 Long-term current use of drug therapy 589812030 Active 2024 JUSTIN Mcginnis Attn: Damian freeman,[address] [place], [address], [facility] 5 09:21:04 Cobalamin deficiency 863923797 Active 2024 JUSTIN Mcginnis Attn: Damian freeman,[address] [place], [address], [facility] 5 09:21:08 Problem Notes None recorded. Procedures Surgical History Date Name Laterality Status Provider Name and Address Organization Details Recorded Time Tonsillectomy completed Hans Murillo MA [facility] 08/07/2023 16:36:22 Imaging Results None recorded. Procedure Notes None recorded. Medical Equipment None Reported. Allergies No known drug allergies Medications Name Sig Start Date Stop Date Status Note LastModified by Organization Details LastModified Time atorvastati n 10 mg tablet TAKE 1 TABLET DAILY IN THE EVENING 2024 active Not Available Not Available Not Avai lable alprazolam 1 mg tablet TAKE 1/2 TO 1 TABLET BY MOUTH DAILY NEEDED active Not Available Not Available No t Available fenofibrate micronized 134 mg capsule TAKE 1 CAPSULE DAILY AT BEDTIME active Not Available Not Available No t Available ropinirole 2 mg tablet TAKE 2 TABLETS DAILY DIRECTED active Not Available Not Available No t Available cyanocobala min (vit B-12) 1,000 mcg/mL injection solution INJECT 2 ML UNDER THE SKIN ONCE MONTHLY active Not Available Not Available No t Available metformin 1,000 mg tablet TAKE 1 TABLET TWICE A DAY active Not Available Not Available No t Available lisinopril 10 mg tablet TAKE 1 TABLET DAILY 05/29 completed Not Available Not Available Not Available BD Luer-Lizabeth Syringe 3 mL 25 gauge x 1 USE TO INJECT ONCE MONTHLY active Not Available Not Available No t Available albuterol sulfate HFA 90 mcg/actuati on aerosol inhaler USE 2 INHALATIO NS EVERY 4 TO 6 HOURS NEEDED active Not Available Not Available No t Available amoxicillin 875 mg-potassiu m clavulanate 125 mg tablet TAKE 1 TABLET BY MOUTH EVERY 12 HOURS 08/06 completed Not Available Not Available Not Available atomoxetine 40 mg capsule TAKE 1 CAPSULE BY MOUTH EVERY DAY 08/28 completed Not Available Not Available Not Available Strattera 60 mg capsule Take 1 capsule every day by oral route. 2024 active Not Available Not Available Not Avai lable duloxetine 60 mg capsule,del ayed release TAKE 1 CAPSULE DAILY active Not Available Not Available No t Available quetiapine 50 mg tablet TAKE 2 TABLETS DAILY DIRECTED 2024 active Not Available Not Available Not Avai lable Farxiga 10 mg tablet TAKE 1 TABLET DAILY 2023 active Not Available Not Available Not Avai lable Trulicity 1.5 mg/0.5 mL subcutaneou s pen injector 08/06 completed Not Available Not Available Not Available Restasis MultiDose 0.05 % eye drops active Not Available Not Available Not Available Mounjaro 7.5 mg/0.5 mL subcutaneou s pen injector ADMINISTE R 7.5MG UNDER THE SKIN EVERY WEEK 08/06 completed Not Available Not Available Not Available Mounjaro 5 mg/0.5 mL subcutaneou s pen injector ADMINISTE R 5 MG UNDER THE SKIN EVERY WEEK DIRECTED 08/06 completed Not Available Not Available Not Available Mounjaro 15 mg/0.5 mL subcutaneou s pen injector Inject by subcutane ous route for 28 days. 2024 active Not Available Not Available Not Avai lable Mounjaro 10 mg/0.5 mL subcutaneou s pen injector INJECT 10 MG UNDER THE SKIN EVERY WEEK 08/06 completed Not Available Not Available Not Available Mounjaro 12.5 mg/0.5 mL subcutaneou s pen injector INJECT 12.5MG INTO THE SKIN ONCE WEEKLY DIRECTED 05/29 completed Not Available Not Available Not Available Mounjaro 2.5 mg/0.5 mL subcutaneou s pen injector ADMINISTE R 2.5MG UNDER THE SKIN EVERY WEEK 08/06 completed Not Available Not Available Not Available Vitals Date Recorded Respiratory rate Systolic blood pressure Diastolic blood pressure Provider Name and Address Organization Details Last Updated DateTime 05/29/2024 16 /min 124 mm[Hg] 80 mm[Hg] JUSTIN Mcginnis Attn: Accounting, [address] [place], [address], [place] 05/29/2024 10:05:46 Date Recorded Body height Body mass index (BMI) Body weight Oxygen saturation Oxygen saturation in Arterial blood by Pulse oximetry Heart rate Systolic blood pressure Diastolic blood pressure Provider Name and Address Organization Details Last Updated DateTime 5 162.56 cm 27.5 kg/m2 37622.7 8 g 99 % 99 % 94 /min 136 mm[Hg] 82 mm[Hg] Hans Murillo MA [facility] 5 09:48:45 Date Recorded Body weight Body mass index (BMI) Body height Respiratory rate Oxygen saturation Oxygen saturation in Arterial blood by Pulse oximetry Heart rate Systolic blood pressure Diastolic blood pressure Provider Name and Address Organization Details Last Updated DateTime 4 33192.7 3 g 30.6 kg/m2 162.56 cm 20 /min 99 % 99 % 76 /min 130 mm[Hg] 84 mm[Hg] Hans Murillo MA [facility] 4 16:35:21 Date Recorded Body height Body mass index (BMI) Body weight Oxygen saturation Oxygen saturation in Arterial blood by Pulse oximetry Heart rate Systolic blood pressure Diastolic blood pressure Provider Name and Address Organization Details Last Updated DateTime 5 162.56 cm 25.7 kg/m2 08738.8 6 g 98 % 98 % 89 /min 126 mm[Hg] 82 mm[Hg] Hans Murillo MA [facility] 5 09:05:37 Date Recorded Body height Body mass index (BMI) Body weight Oxygen saturation Oxygen saturation in Arterial blood by Pulse oximetry Heart rate Respiratory rate Systolic blood pressure Diastolic blood pressure Provider Name and Address Organization Details Last Updated DateTime 4 162.56 cm 27.6 kg/m2 72064.3 7 g 98 % 98 % 83 /min 20 /min 128 mm[Hg] 82 mm[Hg] Hans Murillo MA [facility] 4 11:31:57 Social History Question Answer Notes LastModified by Organizat ion Details LastModified Time Tobacco Smoking Status Former Smoker quit at 45 Hans Murillo MA null, [facility] 08/07/2023 16:32:54 Do You Have An Advance Directive? No Information not available 11/27/2023 Are You Blind Or Do You Have Difficulty Seeing? No Glasses Information not available 08/07/2023 What Is Your Level Of Caffeine Consumption? Moderate Information not available 08/07/2023 In The 14 Days Before Symptom Onset, Have You Had Close Contact With A Laboratory-confir med COVID-19 While That Case Was Ill? No Information not available 08/06/2023 In The 14 Days Before Symptom Onset, Have You Had Close Contact With A Person Who Is Under Investigation For COVID-19 While That Person Was Ill? No Information not available 08/06/2023 Have You Been To An Area Known To Be High Risk For COVID-19? No Information not available 08/07/2023 Are You Deaf Or Do You Have Serious Difficulty Hearing? No Information not available 08/07/2023 What Type Of Diet Are You Following? REGULAR Information not available 08/07/2023 Are There Any Guns Present In Your Home? No Information not available 08/07/2023 What Was The Date Of Your Most Recent Tobacco Screening? 08/28/2024 Information not available 08/28/2024 What Is Your Current Pack Years? 20-29packyea rs Information not available 08/07/2023 What Is Your Relationship Status? Information not available 11/27/2023 Do You Use Your Seat Belt Or Car Seat Routinely? Yes Information not available 08/06/2023 Do You Have Smoke And Carbon Monoxide Detectors In Your Home? Yes Information not available 08/06/2023 At What Age Did You Start Smoking Tobacco? 17 Information not available 08/07/2023 Do You Use Sunscreen Routinely? Yes Information not available 08/07/2023 Has Tobacco Cessation Counseling Been Provided? Yes Information not available 08/06/2023 On What Date Was Tobacco Cessation Counseling Provided? 08/28/2024 Information not available 08/28/2024 Sex: Female Functional Status Question Answer Note LastModified by Organizat ion Details LastModified Time Do you use any illicit or recreational drugs? No Information not available 08/07/2023 Do you or have you ever used any other forms of tobacco or nicotine? No Information not available 08/07/2023 What is your level of alcohol consumption? None Information not available 08/07/2023 Are you currently employed? Yes Information not available 05/29/2024 Are you able to care for yourself? Yes Information n ot available 08/06/2023 What is your exercise level? Moderate Information not available 08/07/2023 Mental Status None recorded. Family History Relationship Description Onset Age of this Age Resolved Age Notes LastModified by Organization Details LastModified Time Father Harmful pattern of use of alcohol [email or web address] Not available 2023 16:36:33 Father Diabetes mellitus [email or web address] Not available 2023 16:36:41 Father Hypertensive disorder [email or web address] Not available 2023 16:36:51 Mother Hypertensive disorder tcarterma Not available 2023 16:36:51 Medical History Condition Response Coronary Artery Disease N Other N High Blood Pressure N Atrial Fibrillation N Thyroid Problems N Kidney or Bladder Problems N Depression N COPD N Blood Clots N GI Problems N Skin Problems N Anemia N Heart Attack ([place]) N Diabetes Y Anxiety Disorder Y Muscle, Joint, or Bone Problems N Seizures/Epilepsy N Acid Reflux (GERD) N Cancer N Stroke N Allergies Y Asthma N High Cholesterol Y Hepatitis N Liver Disease N Headaches N Osteoporosis N Heart Failure N Gynecological History Statement/Question Response Menses Monthly N Current Control Method IUD Obstetrics History GPAL:G 1 P 1 0 0 1 Type Value Full Term 1 Induced 0 Spontaneous 0 Premature 0 Living 1 Ectopics 0 Total 1 Immunizations Vaccine Type Date Status Note Provider Nam e and Address Organization Details Recorded Time zoster recombinant 4 completed [facility] [place] [facility] 02/18/2024 10:04:05 zoster recombinant 3 completed [facility] [place] [facility] 02/18/2024 10:04:05 COVID-19, mRNA, LNP-S, PF, 30 mcg/0.3 mL dose 1 completed [facility] [place] [facility] 02/18/2024 10:04:05 COVID-19, mRNA, LNP-S, PF, 30 mcg/0.3 mL dose 1 completed [facility] [place] [facility] 02/18/2024 10:04:05 Pneumococcal conjugate PCV20, polysaccharide [id number] conjugate, adjuvant, PF 3 completed [facility] [place] [facility] 02/18/2024 10:04:05 COVID-19, mRNA, LNP-S, PF, 30 mcg/0.3 mL dose, natalie-sucrose 2 completed [facility] [place] [facility] 02/18/2024 10:04:05 COVID-19, mRNA, LNP-S, PF, natalie-sucrose, 30 mcg/0.3 mL 3 completed [facility] [place] [facility] 02/18/2024 10:04:05 SARS-COV-2 (COVID-19) vaccine, UNSPECIFIED 4 completed [facility] [place] [facility] 02/18/2024 10:05:23 Past Encounters Encounter ID Performer Location Encounter Start Date Encounter Closed Date Diagnosis/Indication Diagnosis SNOMED-CT Code Diagnosis ICD10 Code Diagnosis Note [id number] Eloy Gonzalez MD [facility] [employer] [address] [place] [phone] 08/07/2023 16:17:57 08/24/2023 15:30:47 Well controlled type 2 diabetes mellitus 301522099 E11.9 refill mounjaro at 15mg weekly. due for labs in august. Generalize d anxiety disorder 25089272 F41.1 refill alprazolam 1mg daily PRN. Restless legs 50208380 G 25.81 stable on requip therapy Mixed hyperlipidemia 267 120546 E78.2 stable on statin therapy. due for lipid panel Benign ess ential hypertension 7889130 I10 stable on lisionopri l 10mg daily. Long-term drug therapy 225969197 Z79.899 routine labs all due in august. Atypical chest pain 1025 51557 R07.89 chest pain present on ROS today. pt has multiple risk factors and is unable to complete tread mill testing due to deconditio adam and fear of falling on treadmill at higher pace. Lightheadedness 40202313 8 R42 refer for u/s carotids. [id number] Eloy Gonzalez MD [facility] [employer] [address] [place] [phone] 11/27/2023 11:19:17 11/27/2023 11:59:55 Body mass index 25-29 - overweight 159695777 Z68.27 BMI is 27.6 and has come down very successful ly Overweight 261259959 E66 .3 Patient has done excellent with her weight loss on Mounjaro therapy Obstructiv e sleep apnea syndrome 37175194 G47.33 current DME company: unknown she will call plan. she does NOT want [employer]. Refer for updated home sleep testing to evaluate if she has any continued obstructiv e sleep apnea since her significan t weight loss Well contr olled type 2 diabetes mellitus 176937845 E11.9 Very stable on mounjaro at 15mg weekly. 5.7% hemoglobin A1c Generalize d anxiety disorder 67911492 F41.1 alprazolam 1mg daily PRN. Restless legs 81664588 G 25.81 stable on requip therapy Mixed hyperlipidemia 267 287190 E78.2 stable on statin therapy. due for lipid panel in April Benign ess ential hypertension 4744573 I10 stable on lisinopril 10mg daily. Long-term drug therapy 047302061 Z79.899 Patient is due again for routine labs in April Vitamin B1 2 deficiency (non anemic) 37597832 E53.8 We will start patient on vitamin B12 injections 2000 mcg monthly. She can get her 1st demonstrat ion here at the office. We will then repeat vitamin B12 and folate labs in April [id number] Eloy Gonzalez MD [facility] [place] [address] [place] [address] 05/29/2024 09:41:17 05/29/2024 10:30:11 Body mass index 25-29 - overweight 071720630 Z68.27 BMI is 27.5 and has come down very successful ly Overweight 540021170 E66 .3 Patient has done excellent with her weight loss on Mounjaro therapy Obstructiv e sleep apnea syndrome 47784401 G47.33 Little to no obstructiv e sleep apnea on repeat study completed December 21, 2023. When you use specific criteria as she would qualify for minimal and could be on 5 cm of pressure. she has chosen to be off cpap. Well contr olled type 2 diabetes mellitus 109669646 E11.9 Very stable on mounjaro at 15mg weekly. 5.7% hemoglobin A1c at last check due for updated labs Generalize d anxiety disorder 97495390 F41.1 alprazolam 1mg daily PRN. Mixed hyperlipidemia 267 985254 E78.2 stable on statin therapy. Restless legs 09174688 G 25.81 stable on requip therapy Benign ess ential hypertension 2093452 I10 stable on lisinopril 10mg daily. Vitamin B1 2 deficiency (non anemic) 99813883 E53.8 Vitamin B12 lab is due patient is giving her own injections monthly Long-term drug therapy 203162693 Z79.899 Routine CBC and CMP due Screening for malignant neoplasm of colon 692329399 Z12.11 Refer for colonoscop y she has not completed this in the past after several orders have been given. She does agree that this will be the year she completes it Screening mammography 24 069631 Z12.31 Mammogram is due order given. She completes this at the [facility] mammograph y [facility] focus 289639989 H52 .7 Trial of generic Strattera 40 mg daily follow-up in 90 days [id number] Eloy Gonzalez MD [facility] [place] [address] [place] [address] 08/28/2024 08:56:44 08/28/2024 09:55:04 Overweight in adulthood with body mass index of 25 or more but less than 30 [id number] E66.3 Z68.25 BMI is 25.7 and has come down very successful ly Long-term current use of drug therapy [id number] Z79.899 Dex labs due in December Mixed hyperlipidemia 267 [id number] E78.2 stable on statin therapy. Type 2 aster betes mellitus [id number] E11.9 Z79.4 5.7% A1c on July labs next repeat due in December Cobalamin deficiency 190 [id number] E53.8 Vitamin B12 lab is due patient is giving her own injections monthly Poor concentration [id number] 005 R41.840 boost to strattera 60mg daily. Health Concerns Section Related Observation LastModified by Organization Detai ls LastModified Time None Recorded Concern Status LastModified by Organization Details LastModified Time None Recorded Advance Directives Directive N: Payers Encounter Date Sequence Insurance Name Policy Number Policy De La Cruz Covered Member ID De La Cruz Member ID Guarantor Name 08/07/2023 1 [employer] [id number] 5 Rachana Meraz [id number] Rachanasylwia Meraz 11/27/2023 1 [employer] [id number] 5 Rachana Meraz [id number] Rachanasylwia Meraz 05/29/2024 1 [facility] [id number] Rachana Meraz [id number] Rachanasylwia Meraz 08/28/[address] [place] [address] [id number] Rachanasylwia Meraz [id number] Rachana Meraz Notes Date Note Type Note Provider Name and Address Organization Details Recorded Time 08/07/19 24 text/htm l Anxiety/DepressionReported bypatient.Notes:stable on duloxetine and alprazolam with some PRN spike in anxietyDiabetesReported bypatient.Notes:has been doing excellent on mounjaro and metformin . due for labsHyperlipidemiaReported bypatient.Notes:stable on statin therapy. due for labsHypertensionReported bypatient.Notes:stable on lisinopril therapy. JUSTIN Mcginnis Attn: Accounting,[address], [place], [address], [facility] 08/23/2023 07:33:40 11/27/19 24 text/htm l Anxiety/DepressionReported bypatient.Notes:stable on duloxetine and alprazolam with some PRN spike in anxietyDiabetesReported bypatient.Notes:has been doing excellent on mounjaro and metformin . due for labsHyperlipidemiaReported bypatient.Notes:stable on statin therapy. due for labsHypertensionReported bypatient.Notes:stable on lisinopril therapy.Obstructive Sleep Apnea F/UReported bypatient.Notes:needs new sleep study since losing 140 pounds in 8 years. cpap has never been adjusting since recent weight loss. Since mounjaro specifically the loss has been 70 pounds. needs new sleep study JUSTIN Mcginnis Attn: Accounting,[address] [facility], [place], [address], [facility] 12/02/2023 21:53:35 05/29/19 25 text/htm l Anxiety/DepressionReported bypatient.Notes:stable on duloxetine and alprazolam with some PRN spike in anxietyDiabetesReported bypatient.Notes:has been doing excellent on mounjaro and metformin . due for labsHyperlipidemiaReported bypatient.Notes:stable on statin therapy. due for labsHypertensionReported bypatient.Notes:stable on lisinopril therapy.Obstructive Sleep Apnea F/UReported bypatient.Notes:Patient no longer has sleep apnea based off normal criteria evaluation on her repeat study. She did not opt to continue low pressure setting and is doing great JUSTIN Mcginnis Attn: Accounting,[address] [facility], [place], [address], [facility] 05/29/2024 21:29:51 08/29/19 25 text/htm l Patient is here to follow-up on attention deficit features with poor focus and concentration. She started Strattera the end of May at her last appointment. She is here for follow-up JUSTIN Mcginnis Attn: Accounting,[address] [place] [address], [id number], [place] - [facility] 08/28/2024 09:21:27 OBGyn Episode No OBEpisode recorded.
[2024-09-04 08:44] VITALS: BP 119/75; PULSE 94; RESP 19; TEMP 36.4; O2SAT 100
[2024-09-04] MEDS: LACTATED RINGERS 1,000 ML 150 ML IV CONT (08:51)
[2024-09-04 08:52] LABS: Glucose Point of Care 52 mg/dl (65-105)
[2024-09-04] MEDS: DEXTROSE 50% 25 GM/50 ML SYRINGE IV PUSH (08:57)
[2024-09-04 09:10] LABS: Glucose Point of Care 131 mg/dl (65-105)
--- NOTE | 2024-09-04 09:19 | PM.HPGS ---
History of Present Illness History of Present Illness Consent: Risks, benefits, and alternatives have been discussed and questions answered. Patient agrees to proceed with procedure. Chief complaint: Screening Narrative: Rachana Meraz is a 54 year old female here for first screening colonoscopy Review of Systems Review of Systems: All systems reviewed & are unremarkable except as noted in HPI and below PMFSH Past Medical History Medical History (Updated 09/04/24 @ 09:20 by Po Freedman MD) Colon cancer screening Asthma Seasonal Hypertension Diabetes Type II Surgical History Surgical History (Updated 08/18/20 @ 17:47 by ARASH Bahena) No significant past surgical history Family History Family History Father Hypertension Family history of diabetes mellitus in first degree relative Mother Hypertension Grandparent Family history of coronary artery disease Diabetes mellitus Social History Social History (Updated 08/18/20 @ 17:48 by ARASH Bahena) Smoking packs per day: 0.5 Smoking cigarettes per day: 10.0 Years smoked: 20 Smoking pack-years: 10.00 Smoking status: Former smoker Tobacco type: cigarettes Second hand tobacco smoke exposure: No Alcohol intake: current Substance use: never Substance use type: does not use Living arrangements: with family Occupation/Education: occupation Gender identity (if verbalized by the patient): Female Sexual Orientation (if Verbalized by the Patient): Straight or Heterosexual Spiritual care concerns: No Meds Home Medications and Allergies Home Medications ?Medication ?Instructions ?Recorded ?Confirmed ?Type albuterol sulfate 90 mcg/actuation 1 inh inhalation Q6H PRN shortness 08/18/20 09/04/24 History aerosol inhaler (ProAir HFA) of breath or wheezing alprazolam 1 mg tablet 1 mg PO QPM 08/18/20 09/04/24 History atorvastatin 10 mg tablet 10 mg PO QPM 08/18/20 09/04/24 History dapagliflozin propanediol 10 mg 10 mg PO DAILY 08/18/20 09/04/24 History tablet (Farxiga) duloxetine 60 mg capsule,delayed 60 mg PO DAILY 08/18/20 09/04/24 History release fenofibrate micronized 134 mg 134 mg PO QPM 08/18/20 08/28/24 History capsule loratadine 10 mg tablet (Claritin) 10 mg PO DAILY 60 days #60 tabs 08/18/20 09/04/24 Rx metformin 1,000 mg tablet 1,000 mg PO BID 08/18/20 09/04/24 History ropinirole 2 mg tablet 4 mg PO QPM 08/18/20 09/04/24 History atomoxetine 40 mg capsule 40 mg PO DAILY 08/28/24 09/04/24 History quetiapine 50 mg tablet 100 mg PO QPM 08/28/24 09/04/24 History tirzepatide 15 mg/0.5 mL 15 mg subcut WEEKLY 08/28/24 09/04/24 History subcutaneous pen injector (Mounjaro) Allergies Allergy/AdvReac Type Severity Reaction Status Date / Time No Known Allergies Allergy Verified 09/04/24 08:44 Vital Signs Vital Signs - 24 hr 09/04/24 08:44 Temperature 97.6 F Pulse Rate 94 Respiratory Rate 19 Blood Pressure 119/75 Pulse Oximetry 100 Oxygen Delivery Room Air Exam Const: General: comfortable and no acute distress HENMT: Face/Nose/Sinus: Normal nares present Eyes: General: appearance normal, both eyes and all related structures Neck: Neck: no JVD Resp: Auscultation: clear to auscultation bilaterally Cardio: Rate: regular rate Rhythm: regular rhythm GI: Inspection: non-distended GI Palp: Yes Soft to palpation Skin: General skin exam: normal color Neuro: General: gait normal Speech: normal speech Extrem: General: normal to inspection Psych: Mental Status: mental status grossly normal Assessment and Plan Assessment and plan (1) Colon cancer screening: Code(s): Z12.11 - Encounter for screening for malignant neoplasm of colon Status: Acute Assessment and Plan: colonoscopy
--- NOTE | 2024-09-04 09:20 | P.PNAN_ITS ---
Anes - Initial Pre Proc Eval Procedure: Operation Date: 09/04/24 09:30 Proposed Procedures p Screening Colonoscopy - Po Freedman MD Date/Time: 09/04/24 09:20 Surgeon: Po Freedman MD Pre Op Diagnosis: Screening Patient Data Age: 54 Gender: F Height: 1.63 m Weight: 68 kg Last Vital Signs Temp 97.6 F 09/04/24 08:44 Pulse 94 09/04/24 08:44 Resp 19 09/04/24 08:44 BP 119/75 09/04/24 08:44 Pulse Ox 100 09/04/24 08:44 O2 Del Method Room Air 09/04/24 08:44 Allergies Allergy/AdvReac Type Severity Reaction Status Date / Time No Known Allergies Allergy Verified 09/04/24 08:44 Home Medications ?Medication ?Instructions ?Recorded ?Confirmed ?Type albuterol sulfate 90 mcg/actuation 1 inh inhalation Q6H PRN shortness 08/18/20 09/04/24 History aerosol inhaler (ProAir HFA) of breath or wheezing alprazolam 1 mg tablet 1 mg PO QPM 08/18/20 09/04/24 History atorvastatin 10 mg tablet 10 mg PO QPM 08/18/20 09/04/24 History dapagliflozin propanediol 10 mg 10 mg PO DAILY 08/18/20 09/04/24 History tablet (Farxiga) duloxetine 60 mg capsule,delayed 60 mg PO DAILY 08/18/20 09/04/24 History release fenofibrate micronized 134 mg 134 mg PO QPM 08/18/20 08/28/24 History capsule loratadine 10 mg tablet (Claritin) 10 mg PO DAILY 60 days #60 tabs 08/18/20 09/04/24 Rx metformin 1,000 mg tablet 1,000 mg PO BID 08/18/20 09/04/24 History ropinirole 2 mg tablet 4 mg PO QPM 08/18/20 09/04/24 History atomoxetine 40 mg capsule 40 mg PO DAILY 08/28/24 09/04/24 History quetiapine 50 mg tablet 100 mg PO QPM 08/28/24 09/04/24 History tirzepatide 15 mg/0.5 mL 15 mg subcut WEEKLY 08/28/24 09/04/24 History subcutaneous pen injector (Mounjaro) Laboratory Tests 09/04/24 09/04/24 08:50 09:08 POC Capillary Glucose 52 L* mg/dl 131 H mg/dl (65-105) (65-105) Patient hx anesthesia problems: none Family hx anesthesia problems: none Results Review: All pre-operative results and documents have been reviewed as part of the pre- operative evaluation. [facility] Past Medical History Medical History Colon cancer screening Asthma Seasonal Hypertension Diabetes Type II Surgical History Surgical History No significant past surgical history Family History Family History Father Hypertension Family history of diabetes mellitus in first degree relative Mother Hypertension Grandparent Family history of coronary artery disease Diabetes mellitus Social History Social History Smoking packs per day: 0.5 Smoking cigarettes per day: 10.0 Years smoked: 20 Smoking pack-years: 10.00 Smoking status: Former smoker Tobacco type: cigarettes Second hand tobacco smoke exposure: No Alcohol intake: current Substance use: never Substance use type: does not use Living arrangements: with family Occupation/Education: occupation Gender identity (if verbalized by the patient): Female Sexual Orientation (if Verbalized by the Patient): Straight or Heterosexual Spiritual care concerns: No Anes - Eval Final PreProcedure Day of Procedure 09/04/24 09:20 Patient weight: overweight Lungs: normal air movement Airway: Mallampati scale class II Neurological: alert and oriented Last oral intake: >/= 8 hours ASA classification: III Emergent: no Anesthetic plan: proceed Anesthesia type and monitoring: general GIVS and standard monitoring Results Review: All pre-operative results and documents have been reviewed as part of the pre- operative evaluation. DM fsbs 131, hyperlipidemia, asthma stable (allergen induced). Pt lost approx 150 lbs over 4 years. Active without cp or sob. Informed Consent: The patient's anesthetic plan and its attendant risks and benefits were discussed with the patient/family/POA. Questions were solicited and answers provided to the satisfaction of the patient/family/POA.
--- NOTE | 2024-09-04 09:37 | S_PTH ---
PATIENT: Rachana Meraz LOC: [facility]#:[id number] AGE/SX: 54/F ROOM: RE09/04/[address]: Po Freedman MD : 1970 BED: DIS: 09/04/2024 SPEC #: [id number] RECD: 09/04/24 10:19 STATUS: KATHIA REKaren #: [id number] BARB: 09/04/24 09:[address]: Po Freedman DEPT: [facility] Surgical RECD BY: Amber Osorio ENTERED: 09/04/24 10:19 SP TYPE: Surgical OTHR DR: Gladys Cabrera, PAKaleigh Tissues: A - Colon Polypectomy Procedures: Hematoxylin and Eosin Stain Gross and Microscopic Level 4
[2024-09-04 09:41] VITALS: BP 82/44; PULSE 87; RESP 20; O2SAT 99
[2024-09-04 09:51] VITALS: BP 102/65; PULSE 82; RESP 22; O2SAT 99
[2024-09-04 09:59] LABS: Glucose Point of Care 63 mg/dl (65-105)
[2024-09-04 10:01] VITALS: BP 105/68; PULSE 89; RESP 18; O2SAT 100
[2024-09-04 10:11] VITALS: BP 101/59; PULSE 81; RESP 18; O2SAT 100
[2024-09-04 10:15] LABS: Glucose Point of Care 66 mg/dl (65-105)
--- NOTE | 2024-09-04 10:23 | SUR.PHASEII ---
Delay on discharge due to lower blood sugar. Pt feels okay. She has drank Pepsi & ate mickie crackers. Will recheck blood sugar.
[2024-09-04 10:33] LABS: Glucose Point of Care 84 mg/dl (65-105)
== END 2024-09-04 10:35 | disposition home or self-care (01) ==
PROVIDERS: PCP Physician Assistant; Referring Provider Physician Assistant; Visit Provider Internal Medicine Gastroenterology
PROC: 0DJD8ZZ Inspection of Lower Intestinal Tract, Via Natural or Artificial Opening Endoscopic (ICD-10-PCS; CPT 45378; principal; 2024-09-04 09:30)
DX: Z12.11 Encounter for screening for malignant neoplasm of colon (principal); D12.2 Benign neoplasm of ascending colon; K64.8 Other hemorrhoids; E11.9 Type 2 diabetes mellitus without complications; Z87.891 Personal history of nicotine dependence
CPT/HCPCS: 45385; 82948; 88305; J2003; J2704; J7120